=== PATIENT | female | born 1940 | race Caucasian/White ===

== ENCOUNTER → 2016-07-28 | Outpatient (CLI) | payer OTHER, MEDICARE ==
[~2016-07-28] MED LIST: ASPEC81 PO; CALCTAB5 PO; METO50TA16 PO; MULT-506 PO; OMEP40CA PO; POTA10CA28 PO; VITA400C15 PO; [UNRECOGNIZED DRUG - CODE] PO
[2016-07-28 12:34] LABS: BASO % 0.5 %; BASO ABS # 0.03 K/uL (0-0.2); COMPLETE YES; EOS % 7.9 %; IG% 0.3 %; LYMPH % 48.9 %; LYMPH ABS # 2.99 K/uL (1.2-3.4); MEAN CELL VOLUME 93.5 fL (80-100); MEAN CORPUSCULAR HGB CONC 34.3 g/dl (32-36); MEAN PLATELET VOLUME 11.6 fL (7.4-10.4); MONO % 8.2 %; NEUT % 34.2 %; PLATELET COUNT 149 K/uL (130-400); RED BLOOD COUNT 4.28 M/uL (4.2-5.4); WHITE BLOOD COUNT 6.11 K/uL (4.8-10.8)
[2016-07-28 12:51] LABS: ALT/SGPT 28 U/L (12-78); AST/SGOT 34 U/L (15-37); BLOOD UREA NITROGEN 11 mg/dl (7-18); CALCIUM 8.9 mg/dl (8.5-10.1); CARBON DIOXIDE 25 mmol/L (21-32); CHLORIDE 107 mmol/L (98-107); GLUCOSE 131 mg/dl (70-99); POTASSIUM 4.2 mmol/L (3.5-5.1); SODIUM 140 mmol/L (136-145)
[2016-07-28 12:58] LABS: ALB/GLOB RATIO 0.8 (0.9-2); ALKALINE PHOSPHATASE 90 U/L (45-117); CHOLESTEROL 113 mg/dl (0-200); CHOLESTEROL/HDL RATIO 3.8; HDL CHOLESTEROL 30 mg/dl; TRIGLYCERIDES 202 mg/dl (0-150); VERY LOW DENSITY LIPOPROT CALC 40 mg/dl
[2016-07-28 13:12] LABS: ESTIMATED AVERAGE GLUCOSE 143 mg/dl; HA1C FLAG Normal (Normal)
== END | disposition home or self-care (01) ==
LOC: C.LABSPEC 12:13
PROVIDERS: ATTEND Internal Medicine
DX: I10 Essential (primary) hypertension (principal); E78.5 Hyperlipidemia, unspecified; R73.9 Hyperglycemia, unspecified

== ENCOUNTER → 2016-07-28 | Outpatient (CLI) | payer OTHER, MEDICARE | END | disposition home or self-care (01) | LOC: C.LABSPEC 12:40 | PROVIDERS: ATTEND Internal Medicine | DX: Z12.11 Encounter for screening for malignant neoplasm of colon (principal) ==

== ENCOUNTER → 2016-11-24 | Outpatient (CLI) | payer OTHER, MEDICARE ==
--- NOTE | 2016-11-24 16:09 | MAMMOGRAPHY REPORT ---
BILATERAL DIGITAL SCREENING MAMMOGRAM TOMOSYNTHESIS WITH CAD: 11/24/2016 CLINICAL HISTORY: Asymptomatic. Personal history of breast cancer. TECHNIQUE: Breast tomosynthesis in addition to standard 2D mammography was performed. Current study was also evaluated with a Computer Aided Detection (CAD) system. COMPARISON: Comparison is made to exams dated: 11/24/2015 mammogram, 11/20/2014 mammogram, 11/27/2013 ma mmogram, 11/19/2013 mammogram, 05/18/2013 mammogram, and 02/15/2013 mammogram - [facility] enter. BREAST COMPOSITION: There are scattered areas of fibroglandular density in both breasts. FINDINGS: No suspicious masses, calcifications, or areas of architectural distortion are noted in ei ther breast. There has been no significant interval change compared to prior exams. Postoperative ch anges are again noted in the left upper outer quadrant from prior lumpectomy, including stable densit y and architectural distortion at the surgical bed. Benign coarse dystrophic calcifications and a bi opsy marker clip are again noted at the lumpectomy bed. A linear scar marker denotes a scar on the l eft upper outer breast. Other scattered bilateral benign-appearing calcifications are again noted. IMPRESSION: ACR BI-RADS CATEGORY 2: BENIGN There is no mammographic evidence of malignancy. A 1 year screening mammogram is recommended. The pa tient will receive written notification of the results. Approximately 10% of breast cancers are not detected with mammography. A negative mammographic report should not delay biopsy if a clinically suggestive mass is present. Sofia Salcedo M.D. /:11/24/2016 13:23:52 Master Lay Out Specialist: Nelda DICKENS(Preeti)(Yakelin)(BD), [facility] letter sent: Normal 1/2 BI-RADS Code: ACR BI-RADS Category 2: Benign
== END | disposition home or self-care (01) ==
LOC: C.MAMM 10:45
PROVIDERS: ATTEND Internal Medicine
DX: Z12.31 Encounter for screening mammogram for malignant neoplasm of breast (principal); Z85.3 Personal history of malignant neoplasm of breast

== ENCOUNTER → 2017-08-10 | Outpatient (CLI) | payer OTHER, MEDICARE ==
--- NOTE | 2017-08-10 17:25 | DIAGNOSTIC IMAGING REPORT ---
TWO VIEW CHEST CLINICAL HISTORY: Cough. FINDINGS: PA and lateral chest radiographs are obtained. No prior studies are available for comparison at the time of dictation. The cardiomediastinal silhouette is unremarkable. The lungs and pleural spaces are clear. There is no pneumothorax. The skeletal structures are osteopenic. The bony thorax appears intact. IMPRESSION: No active disease in the chest. Electronically signed by: Ozzy Rodríguez M.D. 08/10/2017 5:24 PM Dictated Date/Time: 08/10/2017 5:24 PM
== END | disposition home or self-care (01) ==
LOC: C.RAD 16:52
PROVIDERS: ATTEND Internal Medicine
DX: R05 Cough (principal)

== ENCOUNTER 2025-05-16 11:57 | Inpatient (IN) ==
--- NOTE | 2025-05-16 12:35 | Emergency Department Note ---
ED Provider Note History of Present Illness Chief Complaint: Weakness Stated Complaint: Head Injury Time Seen by Provider: 05/16/25 12:15 85-year-old female who presents to the emergency department via EMS with her daughter (who also provides further history of presentation) for evaluation of bloody stool, blood in her mouth and unexplained bruising on her forehead. The patient does live alone. The patient reports that she was out with friends yesterday for lunch. She reports that a retired nurse sat across from her, and did not make any mention of any bruising on her forehead. She went from there to the [facility] coagulation clinic and had her INR drawn. The patient was called this morning, telling her that her INR was 9. They recommend that she stop her Coumadin, and recommended that she come to the emergency department for further evaluation. When asking the patient how she feels, she reports that she is "very tired". She reports that she has been this way for several days. She reports that her stomach keeps grumbling. Her daughter reports that she did notice some bright red blood in her stool/toilet this morning. The patient denies any known trauma to the head, or fall. She currently denies any chest pain, shortness of breath, nausea, blurry vision, back pain or other concerning symptoms. Home Medications Medication Instructions Recorded Confirmed Type acetaminophen 500 mg tablet 500 mg PO Q4H PRN Pain 05/16/25 05/16/25 History (Tylenol Extra Strength) calcium carbonate 500 mg PO BID 05/16/25 05/16/25 History cholecalciferol (vitamin D3) 50 50 mcg PO BID 05/16/25 05/16/25 History mcg (2,000 unit) capsule (Vitamin D3) colestipol 1 gram tablet 1 g PO BID 05/16/25 05/16/25 History diltiazem HCl 120 mg 120 mg PO QAM 05/16/25 05/16/25 History capsule,extended release 24 hr donepezil 10 mg tablet 10 mg PO QAM 05/16/25 05/16/25 History dorzolamide 22.3 mg-timolol 6.8 1 drp OPB QAM 05/16/25 05/16/25 History mg/mL eye drops estradiol 0.01% (0.1 mg/gram) 0.5 g vaginal DIRECTED 05/16/25 05/16/25 History vaginal cream iron 18 mg tablet 18 mg PO DAILY 05/16/25 05/16/25 History metoprolol tartrate 50 mg tablet 75 mg PO BID 05/16/25 05/16/25 History ozsbrgbv-mgmy-anpm 8 mg-folic 400 1 tab PO DAILY 05/16/25 05/16/25 History mcg-K 50 mcg-lutein 300 mcg tablet (Multivitamin Women 50 Plus) silver sulfadiazine 1 % topical 1 applic topical TID 05/16/25 05/16/25 History cream warfarin 2 mg tablet 2 mg PO DIRECTED 05/16/25 05/16/25 History Allergies Allergy/AdvReac Type Severity Reaction Status Date / Time peach Allergy Intermediate HIVES,NAUSEA Verified 05/16/25 16:10 AND VOMITING PRUNUS PERSICA Allergy Intermediate RASH/NAUSEA Uncoded 05/16/25 16:10 /VOMITING Past Med/Surg History Problem List (Updated 05/16/25 @ 16:43 by Alan Leblanc) GI (gastrointestinal hemorrhage) (Acute) Ecchymosis (Acute) Bleeding from mouth (Acute) Supratherapeutic INR (Acute) Medical History Warfarin anticoagulation Atrial fibrillation Arthritis Surgical History H/O total hysterectomy with bilateral salpingo-oophorectomy (BSO) Family History Sister Heart disease of [place] Father Heart disease Mother , of old age Breast cancer Social History Smoking Status: Former smoker Hx Alcohol Use: No Hx Substance Use: No Preferred Language: Marshallese Medical Office Receptionist Required: No marital status: Current Living Situation: Spouse Current Living Situation Comment: lives in home alone current occupational status: retired Feels Safe at Home: Yes Assistive Devices: None Physical Exam Vital Signs Vital Signs - 24 hr 05/16/25 11:53 05/16/25 12:01 05/16/25 12:01 Temperature Temperature Source Pulse Rate 61 60 Pulse Rate [Apical] 58 L Pulse Rhythm Pulse Rhythm [Apical] Regular Pulse Strength [Apical] Normal Respiratory Rate 16 16 Respiratory Effort / Characteristics Non-Labored Spontaneous Respiratory Depth Normal Respiratory Pattern Regular Blood Pressure 121/67 Blood Pressure [Right Arm] 121/60 Blood Pressure Mean 85 Blood Pressure Mean [Right Arm] 80 Pulse Oximetry 98 96 Oxygen Delivery Method Room Air Room Air Sepsis Recent Fever Within 48 Hours No Sepsis New/Unexplained Change in Mental Status No Sepsis Action Taken by Nursing No Action Required 05/16/25 12:09 05/16/25 12:09 05/16/25 12:28 Temperature 36.7 C Temperature Source Oral Pulse Rate 58 L Pulse Rate [Apical] 60 Pulse Rhythm Regular Pulse Rhythm [Apical] Regular Pulse Strength [Apical] Normal Respiratory Rate 16 15 Respiratory Effort / Characteristics Respiratory Depth Respiratory Pattern Blood Pressure Blood Pressure [Right Arm] 121/61 Blood Pressure Mean Blood Pressure Mean [Right Arm] 81 Pulse Oximetry 96 99 99 Oxygen Delivery Method Room Air Room Air Room Air Sepsis Recent Fever Within 48 Hours Sepsis New/Unexplained Change in Mental Status Sepsis Action Taken by Nursing 05/16/25 13:53 05/16/25 14:09 05/16/25 16:00 Temperature Temperature Source Pulse Rate Pulse Rate [Apical] 61 56 L 60 Pulse Rhythm Pulse Rhythm [Apical] Regular Regular Pulse Strength [Apical] Normal Normal Respiratory Rate 16 18 16 Respiratory Effort / Characteristics Non-Labored Spontaneous Respiratory Depth Normal Respiratory Pattern Blood Pressure Blood Pressure [Right Arm] 96/48 L 126/71 Blood Pressure Mean Blood Pressure Mean [Right Arm] 64 89 Pulse Oximetry 98 96 98 Oxygen Delivery Method Room Air Room Air Room Air Sepsis Recent Fever Within 48 Hours Sepsis New/Unexplained Change in Mental Status Sepsis Action Taken by Nursing CONSTITUTIONAL: Healthy and well nourished. Alert and oriented X 3. GCS 15. Patient does not appear in any acute distress. HEENT: Examination shows ecchymosis of the central and left forehead region. No laceration, hematoma, abrasion or other concerning traumatic findings. Pupils equal, round and reactive. Patient does have blood crusted on her lips. Oropharyngeal exam does not show any obvious identified bleed, but does have some blood around the gingiva and teeth. No postnasal bleed appreciated. NECK: Full active range of motion without discomfort. No JVD or carotid bruits on auscultation. LYMPHATICS: No cervical chain adenopathy. RESPIRATORY: Clear to auscultation bilaterally with no wheezing, crackles, rhonchi or stridor. CARDIOVASCULAR: Regular rate and rhythm with no murmurs, rubs or gallops. GASTROINTESTINAL: Bowel sounds present in all quadrants. Patient has no focal abdominal tenderness to palpation. MUSCULOSKELETAL: Full range of motion of all joints without discomfort. INTEGUMENTARY: No rash or other significant dermatologic conditions noted. HEMATOLOGIC: No ecchymosis or petechiae. PSYCHIATRIC: Positive affect. Patient engages in meaningful conversation. NEUROLOGIC: Cranial nerves II-XII grossly intact. No focal neurologic deficits noted. Course Course Patient history and physical exam were performed. Nursing notes are reviewed. Vital signs are reviewed from triage, showing a mild bradycardia, which is not new for the patient. The patient was not hypotensive, febrile or hypoxic. IV access was established, and labs were ordered and drawn. An ECG was performed, showing a mild sinus bradycardia 55 bpm. No A-fib is noted. The patient was placed on engine monitor while in the emergency department. Review of labs shows a mild leukocytosis with normal platelet count, and mildly elevated absolute neutrophil count. INR is greater than 9.5 with a PTT of 86. CMP shows a hyperglycemia, which appears to be baseline for the patient. Patient is mildly hypomagnesemic, doubtful significance. Troponin and TSH were normal. Stool Hemoccult was positive for hematuria. There was a delay with CT imaging as CT was very busy with other critical patients. CT studies were eventually performed and did not show any concerning findings. Findings were discussed with the patient, as well as Dr. Earl, ED attending physician, who recommended administering IV vitamin K. I did explain to the patient that given her active bleeding, she would be best served with admission for further observation. The patient was in agreement with this plan. I did reach out to the [facility] hospitalist service, who requested additional administration of Kcentra, which was ordered. Please see hospitalist dictations for further treatment and final disposition. Administered Medications Colestipol HCl (Colestipol Hcl 1 Gm Tab) 1 gm PO BID DAISY Stop: 06/15/25 20:59 Last Admin: 05/16/25 21:49 Dose: 1 gm Documented By: KRISTEN Pantoprazole Sodium (Protonix) 40 mg in 10 mls @ 5 mls/min IV BID DAISY Stop: 06/15/25 20:59 Last Admin: 05/16/25 20:42 Dose: 5 mls/min Documented By: KRISTEN Metoprolol Tartrate (Metoprolol Tartrate 25 Mg Tab) 75 mg PO BID DAISY Stop: 06/15/25 20:59 Last Admin: 05/16/25 20:41 Dose: 75 mg Documented By: KRISTEN Silver Sulfadiazine (Silver Sulfadiazine 1% Cr 50 Gm Jar/Tube) 1 appln TOP TID DAISY Stop: 06/15/25 20:59 Last Admin: 05/16/25 20:42 Dose: Not Given Documented By: KRISTEN Discontinued Medications Phytonadione 10 mg/ Dextrose 51 mls @ 102 mls/hr IV ONE ONE Stop: 05/16/25 14:22 Last Infusion: 05/16/25 15:20 Dose: Infused Documented By: kindra Admin: 05/16/25 14:22 Dose: 102 mls/hr Documented By: kindra Prothrombin Complex Concent ( (Human) 3,000 units/ Syringe) 120 mls @ 10 mls/min IV NOW STA; Protocol Stop: 05/16/25 16:05 Last Admin: 05/16/25 16:40 Dose: 10 mls/min Documented By: kindra Prothrombin Complex Concent ( (Human) 3,000 units/ Syringe) 120 mls @ 10 mls/min IV NOW STA; Protocol Stop: 05/16/25 16:21 Last Admin: 05/16/25 16:40 Dose: 10 mls/min Documented By: kindra Admin: 05/16/25 16:40 Dose: 10 mls/min Documented By: kindra Magnesium Sulfate/Dextrose (Magnesium Sulfate / D5w) 1 gm in 100 mls @ 50 mls/hr IV Q2H DAISY Stop: 05/16/25 21:29 Last Infusion: 05/16/25 21:52 Dose: Infused Documented By: Admin: 05/16/25 19:36 Dose: 50 mls/hr Documented By: Infusion: 05/16/25 19:34 Dose: Infused Documented By: Admin: 05/16/25 17:34 Dose: 50 mls/hr Documented By: kindra Lactated Ringer's (Lr) 1,000 mls @ 80 mls/hr IV .[id number] [facility] [place] Stop: 05/17/25 07:00 Last Admin: 05/16/25 19:35 Dose: 80 mls/hr Documented By: KRISTEN Miscellaneous (Stat Iv/Im) 1 each N/A NOW STA Stop: 05/16/25 16:05 Last Admin: 05/16/25 16:41 Dose: 1 each Documented By: kindra Medical Decision Making Medical Records Attestation: I reviewed the patient's medical records. Home Medications was personally reviewed by me Laboratory Data Attestation: I reviewed the patient's lab results. 05/17/25 06:00 05/17/25 06:00 Lab Results 05/16/25 05/16/25 05/16/25 Range/Units 12:01 14:08 14:25 WBC 11.20 H (4.8-10.8) K/ul RBC 3.18 L (4.20-5.40) M/uL Hgb 10.4 L (12.0-16.0) g/dL Hct 31.1 L (37.0-47.0) % MCV 97.8 (80.0-100.0) fL MCH 32.7 (25.0-34.0) pg MCHC 33.4 (32.0-36.0) g/dL RDW Std Deviation 46.2 (36.4-46.3) fL RDW Coeff of Janee 12.9 (11.5-14.5) % Plt Count 167 (130-400) K/uL MPV 11.6 (9.4-12.4) fL Immature Gran % (Auto) 0.4 % Neut % (Auto) 81.3 % Lymph % (Auto) 10.6 % Wharton % (Auto) 7.1 % Eos % (Auto) 0.2 % Baso % (Auto) 0.4 % Neut # (Auto) 9.10 H (1.40-6.50) K/uL Lymph # (Auto) 1.19 L (1.20-3.40) K/uL Wharton # (Auto) 0.80 H (0.11-0.59) K/uL Eos # (Auto) 0.02 (0.00-0.50) K/uL Baso # (Auto) 0.04 (0.00-0.20) K/uL Immature Gran # (Auto) 0.05 (0.01-0.20) K/uL PT > 90.0 H (9.0-12.0) Seconds INR > 9.5 H* (0.9-1.1) APTT 86 H* (21-31) Seconds PTT Ratio 3.2 Sodium 141 (136-145) mmol/L Potassium 4.4 (3.5-5.1) mmol/L Chloride 111 H (98-107) mmol/L Carbon Dioxide 25 (21-32) mmol/L Anion Gap 5 (3-11) BUN 22 (6-23) mg/dl Creatinine 1.09 (0.6-1.2) mg/dl Est Cr Clr Drug Dosing 28.0 ml/min eGFR 49.48 BUN/Creatinine Ratio 20.2 H (10-20) Glucose 163 H (70-99(Fasting)) mg/dl Lactate 1.6 (0.4-2.0) mmol/L Calcium 8.9 (8.6-10.3) mg/dl Magnesium 1.6 L (1.7-2.4) mg/dl Total Bilirubin 1.0 (0.2-1.0) mg/dl AST 17 (13-39) U/L ALT 7 (7-52) U/L Alkaline Phosphatase 46 (34-104) U/L Total Creatine Kinase 78 (26-192) U/L Troponin I High Sens 3.2 (0-14) pg/ml Total Protein 6.6 (6.0-8.3) gm/dl Albumin 3.5 (3.4-5.0) gm/dl Globulin 3.1 (2.5-4.0) gm/dl Albumin/Globulin Ratio 1.1 (0.9-2) TSH 2.052 (0.300-4.500) uIu/ml POC Stool Occult Blood Positive A (Negative) Imaging Data Attestation: I personally reviewed and interpreted this imaging study as follows: My Impression: My interpretation of an abdomen x-ray series with the PA chest view does not show evidence for any obstructive findings, pneumothorax, pneumonia or cardiomegaly. My interpretation of a noncontrast CT scan of the head does not show evidence for intracranial bleed, midline shift or mass effect. Radiologist reports were also reviewed with concurrence. Radiologist's Impression: Chest/Abdomen X-ray 05/16/25 12:28 XR abdomen 2V w PA chest HISTORY: 85 years-old Female Weakness, h/o A-fib, GI bleed CT chest abdominal pain with weakness COMPARISON: Chest radiograph 09/05/2023 TECHNIQUE: AP view of the chest with left lateral acute and supine views of the abdomen FINDINGS: Cardiomediastinal and hilar silhouettes are within normal limits. Skin folds project over the chest. No definite pneumothorax, pleural effusion or airspace consolidation. Degenerative changes of the shoulders and spine with sigmoidal thoracolumbar scoliosis. Nonobstructive bowel gas pattern. No definite pneumatosis or pneumoperitoneum. No definite urolith is seen. IMPRESSION: 1. No acute process of the chest. 2. Nonobstructive bowel gas pattern. ACT 112: Negative or not required by law. The above report was generated using voice recognition software. It may contain grammatical, syntax or spelling errors. Electronically signed by: Nino Urias M.D. 05/16/2025 3:[address] 05/16/25 13:30 CT SCAN OF THE BRAIN WITHOUT IV CONTRAST CLINICAL HISTORY: Weakness. Elevated INR. COMPARISON STUDY: None. TECHNIQUE: Unenhanced axial CT scan of the brain was performed from the vertex to the skull base. A dose lowering technique was utilized adhering to the principles of ALARA. CT DOSE: 703.85 mGy.cm FINDINGS: Brain parenchyma: No acute intracranial hemorrhage, midline shift or mass effect is present. Acosta-white matter differentiation is preserved. There are no extra- axial fluid collections. There are no findings to suggest acute dural sinus thrombosis or acute territorial infarct. Ventricles, sulci, cisterns: There is no hydrocephalus. The basal cisterns are patent. Calvarium: Unremarkable. Sinuses and mastoids: The visualized paranasal sinuses are clear. The mastoid air cells are well pneumatized. Orbits: The bony orbits are grossly intact. IMPRESSION: No acute intracranial findings. ACT 112: Negative or not required by law. Electronically signed by: Van Lynn M.D. 05/16/2025 3:34 PM ECG Data Attestation: I personally reviewed and interpreted this ECG as follows: Indication: + weakness Rate (beats per minute): 55 Rhythm: + sinus bradycardia ECG Intervals/blocks: + Normal QRS ECG Kite: + Normal ECG ST segments: + Normal ST segments Comparison ECG Date: from ) Change: no significant change MDM Narrative Cardiac monitoring: An order was placed for continuous cardiac monitoring. The monitor shows a rate of 55 bpm with a sinus bradycardic rhythm. electronic device monitor history was reviewed throughout the evaluation, and no dysrhythmias were noted. See ED Course section for further details of today's visit. The patient was initially marked as a Injury Alert upon presentation given her physical examination findings of forehead ecchymosis and outpatient elevated INR level/Coumadin use. The patient reports from the time that she actually went out with friends yesterday afternoon, until she actually had her blood drawn for INR levels, she denies any trauma to the head. Given that the patient also has gingival bleeding and rectal bleeding as well, I do suspect that the ecchymosis is likely secondary to his supratherapeutic INR level. The patient is of sound mind engages in appropriate conversation, therefore I do not feel that an injury alert was warranted. CT imaging of the head was nonetheless ordered, and did not show any concerning findings. Patient also denies any focal areas of discomfort, therefore I do not feel that further trauma scans are needed. Patient does have a supratherapeutic INR of greater than 9.5, as well as a mild anemia with gingival hemorrhage and mild rectal bleed. The patient was administered IV vitamin K, however discussed the case further with the hospitalist service, who does agree with admission, she will also be administered Kcentra for definitive warfarin reversal. Patient does not have any other concerning findings, such as abnormal thyroid state or other major electrolyte abnormalities. The patient does agree to admission for further observation, with the [facility] hospitalist service agreement with admission as well. The case was also discussed with Dr. Earl, ED attending physician, who agrees with workup and admission planning. Attending Attestation: I Rakesh Earl MD I have reviewed the advanced practitioner's documentation and agree with the plan of care. Vitamin K ordered as well as later Kcentra discussed with the hospitalist. No ICH on imaging per radiology report. I accept the responsibility for the associated risk of managing the patient. I performed a substantive portion of the visit including involvement in all aspects of medical decision making. Impression Supratherapeutic INR, Bleeding from mouth, Ecchymosis, GI (gastrointestinal hemorrhage) Discharge Plan Visit Data Chief Complaint: Weakness Stated Complaint: Head Injury ED Provider: Rakesh Earl ED Midlevel Provider: Alan Leblanc Discharge Problem: Supratherapeutic INR, Bleeding from mouth, Ecchymosis, GI (gastrointestinal hemorrhage) Patient Disposition: Admitted As Inpatient Condition: Fair Discharge Instructions Interventions: ED Discharge Assessment Last Done: 05/16/25 18:13 ED DC CONDITION Conditon at Discharge Condition at Discharge: Fair Discharge Problem: GI (gastrointestinal hemorrhage) Qualifiers: GI bleed type/associated pathology: unspecified gastrointestinal hemorrhage type Qualified Code(s): K92.2 - Gastrointestinal hemorrhage, unspecified
[2025-05-16 13:04] LABS: Hematocrit (blood only) 31.1 % (37.0-47.0); Hemoglobin 10.4 g/dL (12.0-16.0); Immature Granulocytes # (auto) 0.05 K/uL (0.01-0.20); Immature Granulocytes % (auto) 0.4 %; Mean Corpuscular Hemoglobin 32.7 pg (25.0-34.0); Mean Corpuscular Volume 97.8 fL (80.0-100.0); Platelet Count 167 K/uL (130-400); RDW Standard Deviation 46.2 fL (36.4-46.3); Red Blood Count 3.18 M/uL (4.20-5.40); White Blood Count 11.20 K/ul (4.8-10.8)
[2025-05-16 13:23] LABS: Alanine Aminotransferase 7.0 U/L (7-52); Albumin Globulin Ratio 1.1 (0.9-2); Albumin Level 3.5 gm/dl (3.4-5.0); Alkaline Phosphatase 46.0 U/L (34-104); Anion Gap 5.0 (3-11); Bilirubin,Total 1.0 mg/dl (0.2-1.0); Blood Urea Nitrogen 22.0 mg/dl (6-23); Calcium 8.9 mg/dl (8.6-10.3); Carbon Dioxide 25.0 mmol/L (21-32); Chloride 111.0 mmol/L (98-107); Creatine Kinase 78.0 U/L (26-192); Creatinine Clr Calc Pharmacy 28.0 ml/min; Globulin 3.1 gm/dl (2.5-4.0); Glucose 163.0 mg/dl (70-99(Fasting)); Magnesium 1.6 mg/dl (1.7-2.4); Potassium 4.4 mmol/L (3.5-5.1); Sodium 141.0 mmol/L (136-145); Total Protein 6.6 gm/dl (6.0-8.3)
[2025-05-16 13:35] LABS: Thyroid Stimulating Hormone 2.052 uIu/ml (0.300-4.500)
[2025-05-16 13:43] LABS: Prothrombin Time > 90.0 Seconds (9.0-12.0)
[2025-05-16 13:54] LABS: INR > 9.5 (0.9-1.1); Partial Thromboplastin Time 86 Seconds (21-31)
[2025-05-16] MEDS: PHYTONADIONE 10 MG in DEXTROSE 5% 50 ML IV ONE (14:22)
--- NOTE | 2025-05-16 15:12 | XRay Report ---
XR abdomen 2V w PA chest HISTORY: 85 years-old Female Weakness, h/o A-fib, GI bleed CT chest abdominal pain with weakness COMPARISON: Chest radiograph 09/05/2023 TECHNIQUE: AP view of the chest with left lateral acute and supine views of the abdomen FINDINGS: Cardiomediastinal and hilar silhouettes are within normal limits. Skin folds project over the chest. No definite pneumothorax, pleural effusion or airspace consolidation. Degenerative changes of the ashish ulders and spine with sigmoidal thoracolumbar scoliosis. Nonobstructive bowel gas pattern. No definit e pneumatosis or pneumoperitoneum. No definite urolith is seen. IMPRESSION: 1. No acute process of the chest. 2. Nonobstructive bowel gas pattern. ACT 112: Negative or not required by law. The above report was generated using voice recognition software. It may contain grammatical, syntax o r spelling errors. Electronically signed by: Nino Urias M.D. 05/16/2025 3:10 PM
--- NOTE | 2025-05-16 15:36 | CT Scan Report ---
CT SCAN OF THE BRAIN WITHOUT IV CONTRAST CLINICAL HISTORY: Weakness. Elevated INR. COMPARISON STUDY: None. TECHNIQUE: Unenhanced axial CT scan of the brain was performed from the vertex to the skull base. A dose lowering technique was utilized adhering to the principles of ALARA. CT DOSE: 703.85 mGy.cm FINDINGS: Brain parenchyma: No acute intracranial hemorrhage, midline shift or mass effect is present. Acosta-whi te matter differentiation is preserved. There are no extra-axial fluid collections. There are no find ings to suggest acute dural sinus thrombosis or acute territorial infarct. Ventricles, sulci, cisterns: There is no hydrocephalus. The basal cisterns are patent. Calvarium: Unremarkable. Sinuses and mastoids: The visualized paranasal sinuses are clear. The mastoid air cells are well pneu matized. Orbits: The bony orbits are grossly intact. IMPRESSION: No acute intracranial findings. ACT 112: Negative or not required by law. Electronically signed by: Van Lynn M.D. 05/16/2025 3:34 PM
--- NOTE | 2025-05-16 16:35 | History & Physical Report ---
Date of Service May 16, 2025 Assessment & Plan (1) GI (gastrointestinal hemorrhage): (2) Ecchymosis: (3) Supratherapeutic INR: (4) Warfarin anticoagulation: (5) Atrial fibrillation: Plan 85 yo female with pmhx of chronic atrial fibrillation, CKD stage 3b, osteoporosis, Alzheimers disease, hx of left breast cancer, GERD, hx of DVT, HTN who presents for weakness, fatigue, blood per rectum, bruising on head 2/2 possible upper and lower GI tract hemorrhage in setting of supratherapeutic INR. #Acute Blood Loss Anemia #R/o Upper and Lower GI Bleed #Chronic Diarrhea #Hx of C. diff #Supratherapeutic INR -has had borderline BP, dizziness, fatigue since this morning -rectal exam with bright red blood, occult blood positive as well -has hx of recent c. diff infections refractory to treatment -has had recent dosing adjustments and memory issues so may have taken more warfarin than needed -differential includes diarrhea, dosing error, recent abx use Plan: -check stool biofire, c.diff -give Kcentra and vitamin K, recheck INR in AM -start protonix 40 IV bid given melena -recheck CBC tonight -GI consult, appreciate recs, NPO after midnight for consideration of procedure -hold warfarin, iron, carvedilol, continue metoprolol given GI bleed but with afib -start maintenance fluids #Leukocytosis -does have diarrhea -could also be reactive to bleed Plan: -check biofire stool and biofire -check urinalysis #CKD Stage 3b -trend BMP #Alzheimers -continue donepezil #Osteoporosis -f/u outpatient #GERD -on protonix #Hx of DVT #Chronic Atrial Fibrillation -hold blood thinners for now I spent a total of 80 minutes in direct patient care, including [id number] time with the patient and/or family, reviewing medical records, ordering and reviewing diagnostic tests, and coordinating care with other healthcare providers. This time includes: history taking, physical examination, medical decision making, counseling, ECG interpretation, imaging interpretation, lab interpretation, orders, and education, excluding time spent in the performance of separately billed services. History of Present Illness Chief Complaint: -fatigue, weakness, blood per rectum, bruising Primary Care Provider: Yeni Burgos MD 85 yo female with pmhx of chronic atrial fibrillation, CKD stage 3b, osteoporosis, Alzheimers disease, hx of left breast cancer, GERD, hx of DVT, HTN who presents for weakness, fatigue, blood per rectum, bruising on head. No admissions at [facility]. In the ED, given vitamin K for very high INR, tried to admit to medicine, medicine requested kcentra given 4 point Hgb drop and active hemorrhage, Kcentra ordered by ED, admitted to medicine for further workup. Patient seen and examined at bedside. Daughter and sister present as well. Patient is a poor historian. Yesterday was noted to have a bruise all over her head, denies true following, denies being hit. Per family has been having bright red blood per rectum for the past few days. Has had black stool for the past few weeks. Has significant issues with diarrhea. This morning felt weak, lightheaded, fatigued and came to the ED. Denies nausea vomiting chest pain or other associated symptoms. No alcohol use, no tobacco use, no drug use, DNR DNI discussed with family Allergies Allergy/AdvReac Type Severity Reaction Status Date / Time peach Allergy Intermediate HIVES,NAUSEA Verified 05/16/25 16:10 AND VOMITING PRUNUS PERSICA Allergy Intermediate RASH/NAUSEA Uncoded 05/16/25 16:10 /VOMITING Home Medications Medication Instructions Recorded Confirmed Type acetaminophen 500 mg tablet 500 mg PO Q4H PRN Pain 05/16/25 05/16/25 History (Tylenol Extra Strength) calcium carbonate 500 mg PO BID 05/16/25 05/16/25 History cholecalciferol (vitamin D3) 50 50 mcg PO BID 05/16/25 05/16/25 History mcg (2,000 unit) capsule (Vitamin D3) colestipol 1 gram tablet 1 g PO BID 05/16/25 05/16/25 History diltiazem HCl 120 mg 120 mg PO QAM 05/16/25 05/16/25 History capsule,extended release 24 hr donepezil 10 mg tablet 10 mg PO QAM 05/16/25 05/16/25 History dorzolamide 22.3 mg-timolol 6.8 1 drp OPB QAM 05/16/25 05/16/25 History mg/mL eye drops estradiol 0.01% (0.1 mg/gram) 0.5 g vaginal DIRECTED 05/16/25 05/16/25 History vaginal cream iron 18 mg tablet 18 mg PO DAILY 05/16/25 05/16/25 History metoprolol tartrate 50 mg tablet 75 mg PO BID 05/16/25 05/16/25 History opjhvsux-mvbk-rsif 8 mg-folic 400 1 tab PO DAILY 05/16/25 05/16/25 History mcg-K 50 mcg-lutein 300 mcg tablet (Multivitamin Women 50 Plus) silver sulfadiazine 1 % topical 1 applic topical TID 05/16/25 05/16/25 History cream warfarin 2 mg tablet 2 mg PO DIRECTED 05/16/25 05/16/25 History Past Med/Surg History Problem List (Updated 05/16/25 @ 16:43 by Alan Leblanc) GI (gastrointestinal hemorrhage) (Acute) Ecchymosis (Acute) Bleeding from mouth (Acute) Supratherapeutic INR (Acute) Medical History Warfarin anticoagulation Atrial fibrillation Arthritis Surgical History H/O total hysterectomy with bilateral salpingo-oophorectomy (BSO) Family History Sister Heart disease of [place] Father Heart disease Mother , of old age Breast cancer Social History Smoking Status: Former smoker Hx Alcohol Use: No Hx Substance Use: No Preferred Language: Azerbaijani Wireless Store Manager Required: No marital status: Current Living Situation: Spouse Current Living Situation Comment: lives in home alone current occupational status: retired Feels Safe at Home: Yes Assistive Devices: None Review of Systems Review of Systems: -negative unless listed above Physical Exam Physical Exam: Gen: A&O 3 NAD HEENT: noted ecchymoses on scalp worst on left side Neck: Supple, full range of motion, no observable masses, No meningeal sign. Lungs: No Respiratory distress. CV: irregurally irregular, no edema. Abdomen: rectal exam performed with POA permission and with night shift manager in room, trace bright red blood noted, tenderness to palpation in suprapubic region and RLQ MSK: scattered ecchymoses Skin: No rashes, petechiae, lesions. Normal color per patient. Neuro: Normal Gait, Grossly intact. Psych: Appropriate for situation. Results & Data Results & Data Vital Signs (Past 12 Hours) Vital Signs Temp Pulse Pulse Resp BP BP Pulse Ox 05/16/25 14:09 56 L 18 96/48 L 96 05/16/25 13:53 61 16 98 05/16/25 12:28 58 L 15 99 05/16/25 12:09 36.7 C 60 16 121/61 99 05/16/25 12:09 96 05/16/25 12:01 60 05/16/25 12:01 61 16 121/67 96 05/16/25 11:53 58 L 16 121/60 98 O2 Del Method 05/16/25 14:09 Room Air 05/16/25 13:53 Room Air 05/16/25 12:28 Room Air 05/16/25 12:09 Room Air 05/16/25 12:09 Room Air 05/16/25 12:01 05/16/25 12:01 Room Air 05/16/25 11:53 Room Air Laboratory Results -personally reviewed, 4 point Hgb drop from baseline suggestive of bleeding, BUN slightly greater than baseline, INR over 9.55, Mg of 1.6 replenished Code Status & VTE Plan Code Status -DNRDNI discussed with family VTE Prophylaxis Plan VTE Prophylaxis will be ordered: Yes (1) GI (gastrointestinal hemorrhage) GI bleed type/associated pathology: unspecified gastrointestinal hemorrhage type Qualified Code(s): K92.2 - Gastrointestinal hemorrhage, unspecified
[2025-05-16] MEDS: PROTHROMBIN COMP CONC- KCENTRA 3,000 UNITS in SYRINGE 0 ML IV STA ×2 (16:40)
[2025-05-16] MEDS: STAT IV/IM STA (16:41)
[2025-05-16] MEDS: MAGNESIUM SULFATE / D5W 1 GM/100 ML BAG IV SCH (17:34)
[2025-05-16] MEDS ORDERED: ONDANSETRON INJ 2 MG/ML 2 ML VIAL IV PRN (18:23)
[2025-05-16] MEDS ORDERED: ACETAMINOPHEN 325 MG TAB PO PRN (18:23)
[2025-05-16] MEDS ORDERED: POLYETHYLENE (MIRALAX) 17 GM PACK PO PRN (18:23)
[2025-05-16] MEDS: LACTATED RINGER'S 1,000 ML IV SCH (19:35)
[2025-05-16 19:49] LABS: Chlamydia pneumoniae PCR Not Detected (NotDetected); Coronavirus 229E PCR Not Detected (NotDetected); Coronavirus CoV-2 (COVID19)PCR Not Detected (NotDetected); Coronavirus HKU1 PCR Not Detected (NotDetected); Coronavirus NL63 PCR Not Detected (NotDetected); Coronavirus OC43PCR Not Detected (NotDetected); Human Metapneumovirus PCR Not Detected (NotDetected); Parainfluenza Virus 1 PCR Not Detected (NotDetected); Parainfluenza Virus 2 PCR Not Detected (NotDetected); Parainfluenza Virus 3 PCR Not Detected (NotDetected); Parainfluenza Virus 4 PCR Not Detected (NotDetected); Respiratory Syncytial VirusPCR Not Detected (NotDetected); Rhinovirus/Enterovirus PCR Not Detected (NotDetected)
[2025-05-16] MEDS: METOPROLOL TARTRATE 25 MG TAB PO SCH (20:41)
[2025-05-16] MEDS: SILVER SULFADIAZINE 1% CR 50 GM JAR/TUBE TOP SCH (20:42)
[2025-05-16] MEDS: PANTOprazole 40 MG/10 ML SYR IV SCH (20:42)
[2025-05-16 21:27] LABS: Hematocrit (blood only) 26.3 % (37.0-47.0); Hemoglobin 9.1 g/dL (12.0-16.0); Mean Corpuscular Hemoglobin 33.7 pg (25.0-34.0); Mean Corpuscular Volume 97.4 fL (80.0-100.0); Platelet Count 126 K/uL (130-400); RDW Standard Deviation 44.9 fL (36.4-46.3); Red Blood Count 2.70 M/uL (4.20-5.40); White Blood Count 11.50 K/ul (4.8-10.8)
[2025-05-16] MEDS: COLESTIPOL HCL 1 GM TAB PO SCH (21:49)
--- NOTE | 2025-05-16 22:03 | Electrocardiogram Report ---
Test Reason : Blood Pressure : */* mmHG Vent. Rate : 55 BPM Atrial Rate : 55 BPM P-R Int : 202 ms QRS Dur : 64 ms QT Int : 378 ms P-R-T Axes : 63 17 14 degrees QTcB Int : 361 ms Sinus bradycardia Low voltage QRS Septal infarct (cited on or before 05-Sep-2023) Nonspecific T wave abnormality Abnormal ECG When compared with ECG of 05-Sep-2023 14:50, Questionable change in initial forces of Anteroseptal leads Nonspecific T wave abnormality, worse in Lateral leads Confirmed by Shane Torres ([id number]) on 05/16/2025 10:02:50 PM Referred By: REFERRED SELF Confirmed By: Shane Torres
[2025-05-17 00:56] LABS: Appearance Urine Cloudy (Clear); Bacteria Urine Automated 4+ (None Seen); Glucose Urine UA Negative (Negative); RBC Urine Automated 0-2 /hpf (0-2); WBC Urine Automated 21-50 /hpf (0-5)
[2025-05-17 06:45] LABS: Hematocrit (blood only) 25.1 % (37.0-47.0); Hemoglobin 8.5 g/dL (12.0-16.0); Mean Corpuscular Hemoglobin 32.7 pg (25.0-34.0); Mean Corpuscular Volume 96.5 fL (80.0-100.0); Platelet Count 111 K/uL (130-400); RDW Standard Deviation 44.9 fL (36.4-46.3); Red Blood Count 2.60 M/uL (4.20-5.40); White Blood Count 8.69 K/ul (4.8-10.8)
[2025-05-17 07:08] LABS: Alanine Aminotransferase 6.0 U/L (7-52); Albumin Globulin Ratio 1.2 (0.9-2); Albumin Level 3.0 gm/dl (3.4-5.0); Alkaline Phosphatase 36.0 U/L (34-104); Anion Gap 7.0 (3-11); Bilirubin,Total 1.3 mg/dl (0.2-1.0); Blood Urea Nitrogen 22.0 mg/dl (6-23); Calcium 8.2 mg/dl (8.6-10.3); Carbon Dioxide 23.0 mmol/L (21-32); Chloride 109.0 mmol/L (98-107); Creatinine Clr Calc Pharmacy 28.5 ml/min; Globulin 2.6 gm/dl (2.5-4.0); Glucose 89.0 mg/dl (70-99(Fasting)); Magnesium 1.9 mg/dl (1.7-2.4); Potassium 4.1 mmol/L (3.5-5.1); Sodium 139.0 mmol/L (136-145); Total Protein 5.6 gm/dl (6.0-8.3)
[2025-05-17 07:13] LABS: INR 1.1 (0.9-1.1); Prothrombin Time 11.2 Seconds (9.0-12.0)
[2025-05-17] MEDS: DORZOLAMIDE/TIMOLOL 22.3/6.8MG/ML 10 ML BTL OPB SCH (10:48)
--- NOTE | 2025-05-17 11:06 | Gastrointestinal Consultation ---
Date of Consultation May 17, 2025 Assessment & Plan (1) Supratherapeutic INR: (2) GI (gastrointestinal hemorrhage): Plan Patient admitted with supratherapeutic INR. Bleeding seems to have stopped and was likely related to her high INR. Case discussed with Dr. Ordoñez. - continue to follow hgb/hct. transfuse as needed. - continue with protonix 40mg IV bid. - recommend observation for now. no plans for scopes unless she shows signs of active bleeding. Supervising Physician Co-Signing Physician Notes Gastrointestinal bleeding in the face of a supratherapeutic INR. Patient also has extensive ecchymosis. INR corrected. Hemoglobin last 12 hours 9.1-8.1. Transfuse as needed. Reviewed with patient at this point I do not feel strongly that she needs an endoscopy and colonoscopy unless bleeding persists with a corrected INR. High INR would not cause bleeding typically by itself though may be associated with increased risk of bleeding from hemorrhoids colonic or small bowel AVMs. Reviewed with patient daughter. Both are on board with observing. If signs of continued bleeding however despite normalized her therapeutic INR can reconsider endoscopic evaluation. GI will sign off reconsult as needed History of Present Illness Reason for Consultation: lower GIB, melena Requesting Physician: Alan Vera MD Attending Physician: Yasmin Ahn MD History of Present Illness Patient is a 85 year old female with a past medical history of chronic atrial fibrillation, CKD stage 3b, osteoporosis, Alzheimers disease, history of left breast cancer, GERD, DVT, and HTN who presented to the ED 05/16/25 with complaitns of weakness, fatigue, blood per rectum, and bruising on head after being referred to the ED after coumadin clinic at [facility] found her INR was 9. Patient tells me that she did notice a large amount of bright red blood per rectum yesterday. Chart confirms that daughter also reported this in the ED. no melena per patient. patient tells me she feels much better today. she feels more awake. she denies any further bleeding. she denies nausea, vomiting, abdominal pain. I discussed with nursing, only one bowel movement this morning that was described as red, but it was just a small amount and not bright red blood. Patient is somewhat confused this morning. As such, history was also compiled by discussing with nursing and chart review. 05/17/25 wbc 8.69, hgb 8.5, hct 25.1, plts 111, INR 1.1, Na 139, K 4.1, BUN 22, Cr 1.07, T bili 1.3, AST 15, ALT 6, ALK 36. Allergies Allergy/AdvReac Type Severity Reaction Status Date / Time peach Allergy Intermediate HIVES,NAUSEA Verified 05/16/25 16:10 AND VOMITING PRUNUS PERSICA Allergy Intermediate RASH/NAUSEA Uncoded 05/16/25 16:10 /VOMITING Home Medications Medication Instructions Recorded Confirmed Type acetaminophen 500 mg tablet 500 mg PO Q4H PRN Pain 05/16/25 05/16/25 History (Tylenol Extra Strength) calcium carbonate 500 mg PO BID 05/16/25 05/16/25 History cholecalciferol (vitamin D3) 50 50 mcg PO BID 05/16/25 05/16/25 History mcg (2,000 unit) capsule (Vitamin D3) colestipol 1 gram tablet 1 g PO BID 05/16/25 05/16/25 History diltiazem HCl 120 mg 120 mg PO QAM 05/16/25 05/16/25 History capsule,extended release 24 hr donepezil 10 mg tablet 10 mg PO QAM 05/16/25 05/16/25 History dorzolamide 22.3 mg-timolol 6.8 1 drp OPB QAM 05/16/25 05/16/25 History mg/mL eye drops estradiol 0.01% (0.1 mg/gram) 0.5 g vaginal DIRECTED 05/16/25 05/16/25 History vaginal cream iron 18 mg tablet 18 mg PO DAILY 05/16/25 05/16/25 History metoprolol tartrate 50 mg tablet 75 mg PO BID 05/16/25 05/16/25 History alhxfkak-wxex-rmyu 8 mg-folic 400 1 tab PO DAILY 05/16/25 05/16/25 History mcg-K 50 mcg-lutein 300 mcg tablet (Multivitamin Women 50 Plus) silver sulfadiazine 1 % topical 1 applic topical TID 05/16/25 05/16/25 History cream warfarin 2 mg tablet 2 mg PO DIRECTED 05/16/25 05/16/25 History Patient History Medical History Warfarin anticoagulation Atrial fibrillation Arthritis Surgical History H/O total hysterectomy with bilateral salpingo-oophorectomy (BSO) Family History Sister Heart disease of [place] Father Heart disease Mother , of old age Breast cancer Social History Smoking Status: Former smoker Hx Alcohol Use: No Hx Substance Use: No Preferred Language: Romanian Communication Ability: Effective Board Stacker Required: No marital status: Current Living Situation: Spouse Current Living Situation Comment: lives in home alone current occupational status: retired Feels Safe at Home: Yes Assistive Devices: None Review of Systems Review of Systems: All systems reviewed & are unremarkable except as noted in HPI & below Physical Exam Constitutional: WD/WN, vitals as above Respiratory: normal respiratory effort, lungs clear to auscultation Cardiovascular: Rate/Rhythm: regular rate and regular rhythm Gastrointestinal (Abdomen): normal bowel sounds, soft, nontender, no hepatosplenomegaly Psychiatric: Orientation: alert Affect: euthymic affect Results & Data Vital Signs (Past 12 Hours) Vital Signs Temp Pulse Pulse Pulse Resp BP Pulse Ox 05/17/25 10:26 69 05/17/25 07:00 97.9 F 58 L 18 134/81 96 05/17/25 03:20 98.1 F 63 16 123/57 L 93 05/16/25 23:26 97.9 F 61 17 127/72 97 O2 Del Method 05/17/25 10:26 05/17/25 07:00 Room Air 05/17/25 03:20 Room Air 05/16/25 23:26 Room Air Coding Level of Care Code 07151 INT INP/OBS CARE 2/55MIN Diagnoses Supratherapeutic INR R79.1 GI (gastrointestinal hemorrhage) K92.2 GI bleed type/associated pathology: unspecified gastrointestinal hemorrhage type (2) GI (gastrointestinal hemorrhage) GI bleed type/associated pathology: unspecified gastrointestinal hemorrhage type Qualified Code(s): K92.2 - Gastrointestinal hemorrhage, unspecified
--- NOTE | 2025-05-17 11:08 | Hospitalist Progress Note ---
Date of Service May 17, 2025 Assessment & Plan (1) GI (gastrointestinal hemorrhage): (2) Ecchymosis: (3) Supratherapeutic INR: (4) Warfarin anticoagulation: (5) Atrial fibrillation: Plan 85 year old woman with pmhx of chronic atrial fibrillation, CKD stage 3b, osteoporosis, Alzheimers disease, hx of left breast cancer, GERD, hx of DVT, HTN who presents for weakness, fatigue, blood per rectum, bruising on head 2/2 possible upper and lower GI tract hemorrhage in setting of supratherapeutic INR. #Acute Blood Loss Anemia #Gastrointestinal Bleed #Chronic Diarrhea #Hx of C. diff #Supratherapeutic INR Per Admitting Provider, rectal exam with bright red blood and occult blood positive as well Has hx of recent c. diff infections refractory to treatment Per Admitting Provider, she has had recent dosing adjustments and memory issues so may have taken more warfarin than needed Labs on admission was notable for INR >9.5, Hb 10.4 S/P Kcentra and vitamin K INR down to 1.1 today Hb trending down RN reports only small blood in stool this AM GI eval noted. No scopes planned for now Continue clears and monitor Hb Transfuse prn for Hb <7. 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 #CKD Stage 3b Stable #Alzheimers Continue donepezil #Osteoporosis F/u outpatient #GERD On protonix #Hx of DVT #Chronic Atrial Fibrillation Anticoagulation on hold as above Called daughter and updated her She stated that she and her sister will look into doing pill boxes for her to monitor her med compliance I encouraged them to take over her med administration especially anticoagulant to ensure taking it properly especially with her dementia I spent a total of 55 minutes coordinating, documenting and providing care for this patient excluding time spent in performance of separately billed services Admission and Anticipated Discharge Date Admission Date: May 16, 2025 Subjective Patient seen and examined She is AOx3 Reports she noticed bruise on face the other day Reports chronic blood in stool (pinkish) No other complaints Poor historian Physical Exam Constitutional: + well hydrated; no acute distress Resolving ecchymoses on forehead Eyes: PERRL, conjunctivae normal, anicteric sclerae ENMT: external ear and nose normal, oropharynx normal Respiratory: normal respiratory effort, lungs clear to auscultation Cardiovascular: Rate/Rhythm: regular rate and regular rhythm Gastrointestinal (Abdomen): normal bowel sounds, soft, nontender, no hepatosplenomegaly Musculoskeletal: No pedal edema Neurologic: PERRL, EOMI, accommodation nl, no face palsy, no dysarthria Psychiatric: AOx3 Results & Data Results & Data Vital Signs (Past 12 Hours) Vital Signs Temp Pulse Pulse Pulse Resp BP Pulse Ox 05/17/25 10:26 69 05/17/25 07:00 36.6 C 58 L 18 134/81 96 05/17/25 03:20 36.7 C 63 16 123/57 L 93 05/16/25 23:26 36.6 C 61 17 127/72 97 O2 Del Method 05/17/25 10:26 05/17/25 07:00 Room Air 05/17/25 03:20 Room Air 05/16/25 23:26 Room Air Laboratory Results Abnormal lab results 05/16/25 05/17/25 05/17/25 Range/Units 21:06 06:00 10:44 WBC 11.50 H (4.8-10.8) K/ul RBC 2.70 L 2.60 L (4.20-5.40) M/uL Hgb 9.1 L 8.5 L (12.0-16.0) g/dL Hct 26.3 L 25.1 L (37.0-47.0) % Plt Count 126 L 111 L (130-400) K/uL Chloride 109 H (98-107) mmol/L BUN/Creatinine Ratio 20.6 H (10-20) Calcium 8.2 L (8.6-10.3) mg/dl Total Bilirubin 1.3 H (0.2-1.0) mg/dl ALT 6 L (7-52) U/L Total Protein 5.6 L (6.0-8.3) gm/dl Albumin 3.0 L (3.4-5.0) gm/dl Urine Appearance (Clear) Urine Ketones (Negative) Urine Blood (Negative) Urine Nitrite (Negative) Ur Leukocyte Esterase (Negative) Urine WBC (Auto) (0-5) /hpf U Hyaline Cast (Auto) (0-2) /lpf U Epithel Cells (Auto) (0-2) /hpf Urine Bacteria (Auto) (None Seen) Urine Mucus (None Prsent) Stl C. diff Tox B Gene Positive Cdiff Gene A (Neg) 05/17/25 05/17/25 Range/Units 12:03 Unknown WBC (4.8-10.8) K/ul RBC (4.20-5.40) M/uL Hgb 8.1 L (12.0-16.0) g/dL Hct 23.7 L (37.0-47.0) % Plt Count (130-400) K/uL Chloride (98-107) mmol/L BUN/Creatinine Ratio (10-20) Calcium (8.6-10.3) mg/dl Total Bilirubin (0.2-1.0) mg/dl ALT (7-52) U/L Total Protein (6.0-8.3) gm/dl Albumin (3.4-5.0) gm/dl Urine Appearance Cloudy A (Clear) Urine Ketones Trace H (Negative) Urine Blood Trace H (Negative) Urine Nitrite Positive A (Negative) Ur Leukocyte Esterase 2+ H (Negative) Urine WBC (Auto) 21-50 H (0-5) /hpf U Hyaline Cast (Auto) 3-5 H (0-2) /lpf U Epithel Cells (Auto) 11-20 H (0-2) /hpf Urine Bacteria (Auto) 4+ H (None Seen) Urine Mucus Present A (None Prsent) Stl C. diff Tox B Gene (Neg) (1) GI (gastrointestinal hemorrhage) GI bleed type/associated pathology: unspecified gastrointestinal hemorrhage type Qualified Code(s): K92.2 - Gastrointestinal hemorrhage, unspecified
[2025-05-17 12:36] LABS: Cdiff Toxin B Gene (2yr or >) Positive Cdiff Gene (Neg)
[2025-05-17 12:39] LABS: Hematocrit (blood only) 23.7 % (37.0-47.0); Hemoglobin 8.1 g/dL (12.0-16.0)
[2025-05-17 13:13] LABS: Cdiff Toxin A+B Negative Cdiff Toxin (Negative)
[2025-05-17] MEDS: DONEPEZIL HCL 10 MG TAB PO SCH (15:31)
[2025-05-17] MEDS: cefTRIAXone SODIUM 1,000 MG/50 ML BAG IV SCH (16:38)
[2025-05-17] MEDS: ADVANCED PROBIOTIC 625 MG CAPSULE PO SCH (16:38)
[2025-05-17 18:41] LABS: Hematocrit (blood only) 24.8 % (37.0-47.0); Hemoglobin 8.5 g/dL (12.0-16.0)
[2025-05-17] MEDS: PANTOprazole 40 MG/10 ML SYR IV SCH (20:44)
[2025-05-18 00:47] LABS: Hematocrit (blood only) 24.3 % (37.0-47.0); Hemoglobin 8.2 g/dL (12.0-16.0)
[2025-05-18 05:28] LABS: Hematocrit (blood only) 21.9 % (37.0-47.0); Hemoglobin 7.4 g/dL (12.0-16.0); Mean Corpuscular Hemoglobin 33.0 pg (25.0-34.0); Mean Corpuscular Volume 97.8 fL (80.0-100.0); Platelet Count 104 K/uL (130-400); RDW Standard Deviation 45.4 fL (36.4-46.3); Red Blood Count 2.24 M/uL (4.20-5.40); White Blood Count 7.06 K/ul (4.8-10.8)
[2025-05-18 05:53] LABS: Alanine Aminotransferase 6.0 U/L (7-52); Albumin Globulin Ratio 1.0 (0.9-2); Albumin Level 2.8 gm/dl (3.4-5.0); Alkaline Phosphatase 35.0 U/L (34-104); Anion Gap 6.0 (3-11); Bilirubin,Total 0.8 mg/dl (0.2-1.0); Blood Urea Nitrogen 19.0 mg/dl (6-23); Calcium 8.0 mg/dl (8.6-10.3); Carbon Dioxide 24.0 mmol/L (21-32); Chloride 111.0 mmol/L (98-107); Creatinine Clr Calc Pharmacy 28.7 ml/min; Globulin 2.8 gm/dl (2.5-4.0); Glucose 89.0 mg/dl (70-99(Fasting)); Potassium 3.7 mmol/L (3.5-5.1); Sodium 141.0 mmol/L (136-145); Total Protein 5.6 gm/dl (6.0-8.3)
[2025-05-18 06:05] LABS: INR 1.2 (0.9-1.1); Prothrombin Time 12.1 Seconds (9.0-12.0)
[2025-05-18 11:48] LABS: Adenovirus F 40/41 PCR Not Detected (NotDetected); Campylobacter PCR Not Detected (NotDetected); Enteroaggregative E.coli(EAEC) Not Detected (NotDetected); Shiga-like Toxin E.coli (STEC) Not Detected (NotDetected); Vibrio species PCR Not Detected (NotDetected)
[2025-05-18 11:58] LABS: Hematocrit (blood only) 24.3 % (37.0-47.0); Hemoglobin 8.1 g/dL (12.0-16.0)
--- NOTE | 2025-05-18 12:45 | Hospitalist Progress Note ---
Date of Service May 18, 2025 Assessment & Plan (1) GI (gastrointestinal hemorrhage): (2) Ecchymosis: (3) Supratherapeutic INR: (4) Warfarin anticoagulation: (5) Atrial fibrillation: Plan 85 year old woman with pmhx of chronic atrial fibrillation, CKD stage 3b, osteoporosis, Alzheimers disease, hx of left breast cancer, GERD, hx of DVT, HTN who presents for weakness, fatigue, blood per rectum, bruising on head 2/2 possible upper and lower GI tract hemorrhage in setting of supratherapeutic INR. #Acute Blood Loss Anemia #Gastrointestinal Bleed #Chronic Diarrhea #Hx of C. diff #Supratherapeutic INR Per Admitting Provider, rectal exam with bright red blood and occult blood positive as well Has hx of recent c. diff infections refractory to treatment Per Admitting Provider, she has had recent dosing adjustments and memory issues so may have taken more warfarin than needed Labs on admission was notable for INR >9.5, Hb 10.4 S/P Kcentra and vitamin K INR down to 1.2 today Hb trended down from 10.4 on admission to 7.4 this AM but recheck this afternoon is 8.1 Has been stable in 8s for the past 24h GI eval noted In view of liquid dark stools, I discussed with GI Dr Escalante who recommends keeping NPO and continuing to monitor. He will review Transfuse prn for Hb <7. Patient agreeable to transfusion C diff gene positive but negative toxin Continue to hold warfarin for now #UTI UA suggestive of UTI UCx growing E coli Patient is poor historian due to cognitive impairment Continue IV ceftriaxone and follow up UCx sensitivities Continue probiotics #CKD Stage 3b Stable #Alzheimers Continue donepezil #Osteoporosis F/u outpatient #GERD On protonix #Hx of DVT #Chronic Atrial Fibrillation Anticoagulation on hold as above I spent a total of 50 minutes coordinating, documenting and providing care for this patient excluding time spent in performance of separately billed services Admission and Anticipated Discharge Date Admission Date: May 16, 2025 Subjective Patient seen and examined Reports feeling weak Had melanotic stool during my evaluation Denied any abd pain, dizziness, cough, SOB, GUPTA RN reports this is her 4th BM today Physical Exam Constitutional: + well hydrated; no acute distress Eyes: PERRL, conjunctivae normal, anicteric sclerae ENMT: external ear and nose normal, oropharynx normal Respiratory: normal respiratory effort, lungs clear to auscultation Cardiovascular: Rate/Rhythm: regular rate and regular rhythm Gastrointestinal (Abdomen): normal bowel sounds, soft, nontender, no hepatosplenomegaly Musculoskeletal: No pedal edema Neurologic: PERRL, EOMI, accommodation nl, no face palsy, no dysarthria Psychiatric: Alert and oriented to person, place, month/year Results & Data Results & Data Vital Signs (Past 12 Hours) Vital Signs Temp Pulse Resp BP Pulse Ox O2 Del Method 05/18/25 11:30 36.7 C 62 17 144/76 H 94 Room Air 05/18/25 10:00 Room Air 05/18/25 08:00 36.7 C 71 17 148/72 H 98 Room Air 05/18/25 03:33 36.7 C 74 16 143/62 H 94 Room Air Laboratory Results Abnormal lab results 05/17/25 05/18/25 05/18/25 Range/Units 18:04 00:12 05:00 RBC 2.24 L (4.20-5.40) M/uL Hgb 8.5 L 8.2 L 7.4 L (12.0-16.0) g/dL Hct 24.8 L 24.3 L 21.9 L (37.0-47.0) % Plt Count 104 L (130-400) K/uL PT 12.1 H (9.0-12.0) Seconds INR 1.2 H (0.9-1.1) Chloride 111 H (98-107) mmol/L Calcium 8.0 L (8.6-10.3) mg/dl ALT 6 L (7-52) U/L Total Protein 5.6 L (6.0-8.3) gm/dl Albumin 2.8 L (3.4-5.0) gm/dl 05/18/25 Range/Units 11:42 RBC (4.20-5.40) M/uL Hgb 8.1 L (12.0-16.0) g/dL Hct 24.3 L (37.0-47.0) % Plt Count (130-400) K/uL PT (9.0-12.0) Seconds INR (0.9-1.1) Chloride (98-107) mmol/L Calcium (8.6-10.3) mg/dl ALT (7-52) U/L Total Protein (6.0-8.3) gm/dl Albumin (3.4-5.0) gm/dl (1) GI (gastrointestinal hemorrhage) GI bleed type/associated pathology: unspecified gastrointestinal hemorrhage type Qualified Code(s): K92.2 - Gastrointestinal hemorrhage, unspecified
[2025-05-18] MEDS: D5W AND NSS 1,000 ML IV SCH (14:09)
--- NOTE | 2025-05-18 16:41 | Gastroenterology Progress Note ---
Date of Service May 18, 2025 Assessment & Plan (1) GI (gastrointestinal hemorrhage): Plan: Coagulopathy normalized with holding Coumadin. Hemoglobin 8.1 relatively stable now and hemodynamically stable. In light of initial presentation could consider endoscopy. I discussed this with family and they are agreeable. We could proceed with endoscopy on Tuesday if medically cleared. Admission and Anticipated Discharge Date Admission Date: May 16, 2025 Subjective Has been having some loose dark stool several times today no black tarry stool no shortness of breath no chest pain Physical Exam Physical Exam: No acute distress Respiratory rate regular Cardiac rhythm regular Abdomen soft nontender Results & Data Results & Data Vital Signs (Past 12 Hours) Vital Signs Temp Pulse Resp BP Pulse Ox O2 Del Method 05/18/25 11:30 36.7 C 62 17 144/76 H 94 Room Air 05/18/25 10:00 Room Air 05/18/25 08:00 36.7 C 71 17 148/72 H 98 Room Air Laboratory Results Laboratory Results - last 48 hr 05/16/25 05/16/25 05/16/25 21:06 22:00 Unknown WBC 11.50 H RBC 2.70 L Hgb 9.1 L Hct 26.3 L MCV 97.4 MCH 33.7 MCHC 34.6 RDW Std Deviation 44.9 RDW Coeff of Janee 12.8 Plt Count 126 L MPV 11.1 PT INR Sodium Potassium Chloride Carbon Dioxide Anion Gap BUN Creatinine Est Cr Clr Drug Dosing eGFR BUN/Creatinine Ratio Glucose Calcium Phosphorus Magnesium Total Bilirubin AST ALT Alkaline Phosphatase Total Protein Albumin Globulin Albumin/Globulin Ratio Urine Color Urine Appearance Urine pH Ur Specific [place] Urine Protein Urine Glucose (UA) Urine Ketones Urine Blood Urine Nitrite Urine Bilirubin Urine Urobilinogen Ur Leukocyte Esterase Urine WBC (Auto) Urine RBC (Auto) U Hyaline Cast (Auto) U Epithel Cells (Auto) Urine Bacteria (Auto) Urine Mucus Urine Comment Stl C. cayetanensis PCR Stool Rotavirus A PCR Stl Adenov F 40/41 PCR Stool Astrovirus (PCR) Stool Campylobacter PCR Stl C. diff Tox B Gene Cancelled Stl C.difficile Tox A&B Stl C. diff 027-NAP1-BI Cancelled Stool Cryptosporidium PCR Stl E.coli Shiga Tox PCR Stool E coli O157 PCR Stl Enterotoxigenic E PCR Stool EPEC (PCR) Stool EAEC (PCR) Stl E. histolytica PCR Stool Giardia Lamblia PCR Stool Salmonella PCR Stool Sapovirus (PCR) Stl P. shigelloides PCR Stl Shigella/EIEC PCR St Y.enterocolitica PCR Stool Vibrio (PCR) Stl Vibrio cholerae PCR Stl Norovirus GI/GII PCR Adenovirus (PCR) Not Detected B. pertussis DNA (PCR) Not Detected B.parapertussis DNA PCR Not Detected C. pneumoniae DNA (PCR) Not Detected Coronavirus OC43 (PCR) Not Detected Coronavirus HKU1 (PCR) Not Detected Coronavirus 229E (PCR) Not Detected SARS-CoV-2 (PCR) Not Detected Coronavirus NL63 (PCR) Not Detected Human Metapneumovir PCR Not Detected Influenza Type A (PCR) Not Detected Influenza Type B (PCR) Not Detected M. pneumoniae (PCR) Not Detected Parainfluenza 1 (PCR) Not Detected Parainfluenza 2 (PCR) Not Detected Parainfluenza 3 (PCR) Not Detected Parainfluenza 4 (PCR) Not Detected RSV (PCR) Not Detected Entero/Rhino (PCR) Not Detected 05/17/25 05/17/25 05/17/25 06:00 10:44 12:03 WBC 8.69 RBC 2.60 L Hgb 8.5 L 8.1 L Hct 25.1 L 23.7 L MCV 96.5 MCH 32.7 MCHC 33.9 RDW Std Deviation 44.9 RDW Coeff of Janee 12.9 Plt Count 111 L MPV 11.3 PT 11.2 INR 1.1 Sodium 139 Potassium 4.1 Chloride 109 H Carbon Dioxide 23 Anion Gap 7 BUN 22 Creatinine 1.07 Est Cr Clr Drug Dosing 28.5 eGFR 50.59 BUN/Creatinine Ratio 20.6 H Glucose 89 Calcium 8.2 L Phosphorus 3.0 Magnesium 1.9 Total Bilirubin 1.3 H AST 15 ALT 6 L Alkaline Phosphatase 36 Total Protein 5.6 L Albumin 3.0 L Globulin 2.6 Albumin/Globulin Ratio 1.2 Urine Color Urine Appearance Urine pH Ur Specific [place] Urine Protein Urine Glucose (UA) Urine Ketones Urine Blood Urine Nitrite Urine Bilirubin Urine Urobilinogen Ur Leukocyte Esterase Urine WBC (Auto) Urine RBC (Auto) U Hyaline Cast (Auto) U Epithel Cells (Auto) Urine Bacteria (Auto) Urine Mucus Urine Comment Stl C. cayetanensis PCR Cancelled Stool Rotavirus A PCR Cancelled Stl Adenov F 40 PCR Cancelled Stool Astrovirus (PCR) Cancelled Stool Campylobacter PCR Cancelled Stl C. diff Tox B Gene Positive Cdiff Gene A Stl C.difficile Tox A&B Negative Cdiff Toxin Stl C. diff 027-NAP1-[id number] NEGATIVE Stool Cryptosporidium PCR Cancelled Stl E.coli Shiga Tox PCR Cancelled Stool E coli O157 PCR Cancelled Stl Enterotoxigenic E PCR Cancelled Stool EPEC (PCR) Cancelled Stool EAEC (PCR) Cancelled Stl E. histolytica PCR Cancelled Stool Giardia Lamblia PCR Cancelled Stool Salmonella PCR Cancelled Stool Sapovirus (PCR) Cancelled Stl P. shigelloides PCR Cancelled Stl Shigella/EIEC PCR Cancelled St Y.enterocolitica PCR Cancelled Stool Vibrio (PCR) Cancelled Stl Vibrio cholerae PCR Cancelled Stl Norovirus GI/GII PCR Cancelled Adenovirus (PCR) B. pertussis DNA (PCR) B.parapertussis DNA PCR C. pneumoniae DNA (PCR) Coronavirus OC43 (PCR) Coronavirus HKU1 (PCR) Coronavirus 229E (PCR) SARS-CoV-2 (PCR) Coronavirus NL63 (PCR) Human Metapneumovir PCR Influenza Type A (PCR) Influenza Type B (PCR) M. pneumoniae (PCR) Parainfluenza 1 (PCR) Parainfluenza 2 (PCR) Parainfluenza 3 (PCR) Parainfluenza 4 (PCR) RSV (PCR) Entero/Rhino (PCR) 05/17/25 05/17/25 05/18/25 18:04 Unknown 00:12 WBC RBC Hgb 8.5 L 8.2 L Hct 24.8 L 24.3 L MCV MCH MCHC RDW Std Deviation RDW Coeff of Janee Plt Count MPV PT INR Sodium Potassium Chloride Carbon Dioxide Anion Gap BUN Creatinine Est Cr Clr Drug Dosing eGFR BUN/Creatinine Ratio Glucose Calcium Phosphorus Magnesium Total Bilirubin AST ALT Alkaline Phosphatase Total Protein Albumin Globulin Albumin/Globulin Ratio Urine Color Yellow Urine Appearance Cloudy A Urine pH 5.0 Ur Specific [place] 1.020 Urine Protein Negative Urine Glucose (UA) Negative Urine Ketones Trace H Urine Blood Trace H Urine Nitrite Positive A Urine Bilirubin Negative Urine Urobilinogen Negative Ur Leukocyte Esterase 2+ H Urine WBC (Auto) 21-50 H Urine RBC (Auto) 0-2 U Hyaline Cast (Auto) 3-5 H U Epithel Cells (Auto) 11-20 H Urine Bacteria (Auto) 4+ H Urine Mucus Present A Urine Comment Stl C. cayetanensis PCR Stool Rotavirus A PCR Stl Adenov F PCR Stool Astrovirus (PCR) Stool Campylobacter PCR Stl C. diff Tox B Gene Stl C.difficile Tox A&B Stl C. diff 027-NAP1-[id number] Stool Cryptosporidium PCR Stl E.coli Shiga Tox PCR Stool E coli O157 PCR Stl Enterotoxigenic E PCR Stool EPEC (PCR) Stool EAEC (PCR) Stl E. histolytica PCR Stool Giardia Lamblia PCR Stool Salmonella PCR Stool Sapovirus (PCR) Stl P. shigelloides PCR Stl Shigella/EIEC PCR St Y.enterocolitica PCR Stool Vibrio (PCR) Stl Vibrio cholerae PCR Stl Norovirus GI/GII PCR Adenovirus (PCR) B. pertussis DNA (PCR) B.parapertussis DNA PCR C. pneumoniae DNA (PCR) Coronavirus OC43 (PCR) Coronavirus HKU1 (PCR) Coronavirus 229E (PCR) SARS-CoV-2 (PCR) Coronavirus NL63 (PCR) Human Metapneumovir PCR Influenza Type A (PCR) Influenza Type B (PCR) M. pneumoniae (PCR) Parainfluenza 1 (PCR) Parainfluenza 2 (PCR) Parainfluenza 3 (PCR) Parainfluenza 4 (PCR) RSV (PCR) Entero/Rhino (PCR) 05/18/25 05/18/25 05/18/25 05:00 11:42 Unknown WBC 7.06 RBC 2.24 L Hgb 7.4 L 8.1 L Hct 21.9 L 24.3 L MCV 97.8 MCH 33.0 MCHC 33.8 RDW Std Deviation 45.4 RDW Coeff of Janee 12.9 Plt Count 104 L MPV 11.0 PT 12.1 H INR 1.2 H Sodium 141 Potassium 3.7 Chloride 111 H Carbon Dioxide 24 Anion Gap 6 BUN 19 Creatinine 1.06 Est Cr Clr Drug Dosing 28.7 eGFR 51.16 BUN/Creatinine Ratio 17.9 Glucose 89 Calcium 8.0 L Phosphorus Magnesium Total Bilirubin 0.8 D AST 17 ALT 6 L Alkaline Phosphatase 35 Total Protein 5.6 L Albumin 2.8 L Globulin 2.8 Albumin/Globulin Ratio 1.0 Urine Color Urine Appearance Urine pH Ur Specific [place] Urine Protein Urine Glucose (UA) Urine Ketones Urine Blood Urine Nitrite Urine Bilirubin Urine Urobilinogen Ur Leukocyte Esterase Urine WBC (Auto) Urine RBC (Auto) U Hyaline Cast (Auto) U Epithel Cells (Auto) Urine Bacteria (Auto) Urine Mucus Urine Comment Stl C. cayetanensis PCR Not Detected Stool Rotavirus A PCR Not Detected Stl Adenov F 40/41 PCR Not Detected Stool Astrovirus (PCR) Not Detected Stool Campylobacter PCR Not Detected Stl C. diff Tox B Gene Stl C.difficile Tox A&B Stl C. diff 027-[id number] Stool Cryptosporidium PCR Not Detected Stl E.coli Shiga Tox PCR Not Detected Stool E coli O157 PCR Stl Enterotoxigenic E PCR Not Detected Stool EPEC (PCR) Not Detected Stool EAEC (PCR) Not Detected Stl E. histolytica PCR Not Detected Stool Giardia Lamblia PCR Not Detected Stool Salmonella PCR Not Detected Stool Sapovirus (PCR) Not Detected Stl P. shigelloides PCR Not Detected Stl Shigella/EIEC PCR Not Detected St Y.enterocolitica PCR Not Detected Stool Vibrio (PCR) Not Detected Stl Vibrio cholerae PCR Not Detected Stl Norovirus GI/GII PCR Not Detected Adenovirus (PCR) B. pertussis DNA (PCR) B.parapertussis DNA PCR C. pneumoniae DNA (PCR) Coronavirus OC43 (PCR) Coronavirus HKU1 (PCR) Coronavirus 229E (PCR) SARS-CoV-2 (PCR) Coronavirus NL63 (PCR) Human Metapneumovir PCR Influenza Type A (PCR) Influenza Type B (PCR) M. pneumoniae (PCR) Parainfluenza 1 (PCR) Parainfluenza 2 (PCR) Parainfluenza 3 (PCR) Parainfluenza 4 (PCR) RSV (PCR) Entero/Rhino (PCR) PG Care Time/CCT Total # of Minutes Spent Total Time Spent with Patient: Total time spent is greater than 50% in coordination of care (as documented) at patient's floor/unit and/or counseling patient: Coding Level of Care Code 82394 SUB INP/OBS CARE 2/35MIN Diagnoses GI (gastrointestinal hemorrhage) K92.2 GI bleed type/associated pathology: unspecified gastrointestinal hemorrhage type (1) GI (gastrointestinal hemorrhage) GI bleed type/associated pathology: unspecified gastrointestinal hemorrhage type Qualified Code(s): K92.2 - Gastrointestinal hemorrhage, unspecified
[2025-05-18 18:48] LABS: Hematocrit (blood only) 24.6 % (37.0-47.0); Hemoglobin 8.2 g/dL (12.0-16.0)
[2025-05-19 00:31] LABS: Hematocrit (blood only) 26.1 % (37.0-47.0); Hemoglobin 8.7 g/dL (12.0-16.0)
[2025-05-19 07:26] LABS: Hematocrit (blood only) 24.7 % (37.0-47.0); Hemoglobin 8.1 g/dL (12.0-16.0); Mean Corpuscular Hemoglobin 32.4 pg (25.0-34.0); Mean Corpuscular Volume 98.8 fL (80.0-100.0); Platelet Count 111 K/uL (130-400); RDW Standard Deviation 46.0 fL (36.4-46.3); Red Blood Count 2.50 M/uL (4.20-5.40); White Blood Count 5.37 K/ul (4.8-10.8)
[2025-05-19 07:42] LABS: Alanine Aminotransferase 5.0 U/L (7-52); Albumin Globulin Ratio 1.1 (0.9-2); Albumin Level 3.0 gm/dl (3.4-5.0); Alkaline Phosphatase 35.0 U/L (34-104); Anion Gap 7.0 (3-11); Bilirubin,Total 0.7 mg/dl (0.2-1.0); Blood Urea Nitrogen 11.0 mg/dl (6-23); Calcium 7.9 mg/dl (8.6-10.3); Carbon Dioxide 23.0 mmol/L (21-32); Chloride 112.0 mmol/L (98-107); Creatinine Clr Calc Pharmacy 32.1 ml/min; Globulin 2.7 gm/dl (2.5-4.0); Glucose 101.0 mg/dl (70-99(Fasting)); Potassium 3.5 mmol/L (3.5-5.1); Sodium 142.0 mmol/L (136-145); Total Protein 5.7 gm/dl (6.0-8.3)
--- NOTE | 2025-05-19 09:21 | Gastroenterology Progress Note ---
Date of Service May 19, 2025 Assessment & Plan (1) GI (gastrointestinal hemorrhage): Plan: Unclear etiology of GI blood loss. Reported history suggests melena as well as bright red blood per rectum. In light of this confusion plan to do endoscopy and colonoscopy tomorrow if family agreeable. Colonoscopy will help us also evaluate causes for diarrhea. Admission and Anticipated Discharge Date Admission Date: May 16, 2025 Subjective Patient resting comfortably denies abdominal pain shortness of breath or chest pain. Denies overt bleeding at this time. Physical Exam Physical Exam: No acute distress Respiratory rate regular Cardiac rhythm regular Abdomen soft nontender Results & Data Results & Data Vital Signs (Past 12 Hours) Vital Signs Temp Pulse Resp BP Pulse Ox O2 Del Method 05/19/25 08:50 36.8 C 54 L 18 127/65 98 Room Air 05/19/25 03:56 36.5 C 70 16 151/64 H 96 Room Air 05/18/25 23:29 36.8 C 56 L 16 151/69 H 93 Room Air Laboratory Results Laboratory Results - last 48 hr 05/17/25 05/17/25 05/17/25 10:44 12:03 18:04 WBC RBC Hgb 8.1 L 8.5 L Hct 23.7 L 24.8 L MCV MCH MCHC RDW Std Deviation RDW Coeff of Janee Plt Count MPV PT INR Sodium Potassium Chloride Carbon Dioxide Anion Gap BUN Creatinine Est Cr Clr Drug Dosing eGFR BUN/Creatinine Ratio Glucose Calcium Total Bilirubin AST ALT Alkaline Phosphatase Total Protein Albumin Globulin Albumin/Globulin Ratio Stl C. cayetanensis PCR Cancelled Stool Rotavirus A PCR Cancelled Stl Adenov F 40/41 PCR Cancelled Stool Astrovirus (PCR) Cancelled Stool Campylobacter PCR Cancelled Stl C. diff Tox B Gene Positive Cdiff Gene A Stl C.difficile Tox A&B Negative Cdiff Toxin Stl C. diff [id number]-[id number] NEGATIVE Stool Cryptosporidium PCR Cancelled Stl E.coli Shiga Tox PCR Cancelled Stool E coli O157 PCR Cancelled Stl Enterotoxigenic E PCR Cancelled Stool EPEC (PCR) Cancelled Stool EAEC (PCR) Cancelled Stl E. histolytica PCR Cancelled Stool Giardia Lamblia PCR Cancelled Stool Salmonella PCR Cancelled Stool Sapovirus (PCR) Cancelled Stl P. shigelloides PCR Cancelled Stl Shigella/EIEC PCR Cancelled St Y.enterocolitica PCR Cancelled Stool Vibrio (PCR) Cancelled Stl Vibrio cholerae PCR Cancelled Stl Norovirus GI/GII PCR Cancelled 05/18/25 05/18/25 05/18/25 00:12 05:00 11:42 WBC 7.06 RBC 2.24 L Hgb 8.2 L 7.4 L 8.1 L Hct 24.3 L 21.9 L 24.3 L MCV 97.8 MCH 33.0 MCHC 33.8 RDW Std Deviation 45.4 RDW Coeff of Janee 12.9 Plt Count 104 L MPV 11.0 PT 12.1 H INR 1.2 H Sodium 141 Potassium 3.7 Chloride 111 H Carbon Dioxide 24 Anion Gap 6 BUN 19 Creatinine 1.06 Est Cr Clr Drug Dosing 28.7 eGFR 51.16 BUN/Creatinine Ratio 17.9 Glucose 89 Calcium 8.0 L Total Bilirubin 0.8 D AST 17 ALT 6 L Alkaline Phosphatase 35 Total Protein 5.6 L Albumin 2.8 L Globulin 2.8 Albumin/Globulin Ratio 1.0 Stl C. cayetanensis PCR Stool Rotavirus A PCR Stl Adenov F PCR Stool Astrovirus (PCR) Stool Campylobacter PCR Stl C. diff Tox B Gene Stl C.difficile Tox A&B Stl C. diff 027-NAP1-[id number] Stool Cryptosporidium PCR Stl E.coli Shiga Tox PCR Stool E coli O157 PCR Stl Enterotoxigenic E PCR Stool EPEC (PCR) Stool EAEC (PCR) Stl E. histolytica PCR Stool Giardia Lamblia PCR Stool Salmonella PCR Stool Sapovirus (PCR) Stl P. shigelloides PCR Stl Shigella/EIEC PCR St Y.enterocolitica PCR Stool Vibrio (PCR) Stl Vibrio cholerae PCR Stl Norovirus GI/GII PCR 05/18/25 05/18/25 05/19/25 18:22 Unknown 00:12 WBC RBC Hgb 8.2 L 8.7 L Hct 24.6 L 26.1 L MCV MCH MCHC RDW Std Deviation RDW Coeff of Janee Plt Count MPV PT INR Sodium Potassium Chloride Carbon Dioxide Anion Gap BUN Creatinine Est Cr Clr Drug Dosing eGFR BUN/Creatinine Ratio Glucose Calcium Total Bilirubin AST ALT Alkaline Phosphatase Total Protein Albumin Globulin Albumin/Globulin Ratio Stl C. cayetanensis PCR Not Detected Stool Rotavirus A PCR Not Detected Stl Adenov F 40 PCR Not Detected Stool Astrovirus (PCR) Not Detected Stool Campylobacter PCR Not Detected Stl C. diff Tox B Gene Stl C.difficile Tox A&B Stl C. diff 027-NAP1-[id number] Stool Cryptosporidium PCR Not Detected Stl E.coli Shiga Tox PCR Not Detected Stool E coli O157 PCR Stl Enterotoxigenic E PCR Not Detected Stool EPEC (PCR) Not Detected Stool EAEC (PCR) Not Detected Stl E. histolytica PCR Not Detected Stool Giardia Lamblia PCR Not Detected Stool Salmonella PCR Not Detected Stool Sapovirus (PCR) Not Detected Stl P. shigelloides PCR Not Detected Stl Shigella/EIEC PCR Not Detected St Y.enterocolitica PCR Not Detected Stool Vibrio (PCR) Not Detected Stl Vibrio cholerae PCR Not Detected Stl Norovirus GI/GII PCR Not Detected 05/19/25 06:42 WBC 5.37 RBC 2.50 L Hgb 8.1 L Hct 24.7 L MCV 98.8 MCH 32.4 MCHC 32.8 RDW Std Deviation 46.0 RDW Coeff of Janee 13.1 Plt Count 111 L MPV 10.9 PT INR Sodium 142 Potassium 3.5 Chloride 112 H Carbon Dioxide 23 Anion Gap 7 BUN 11 Creatinine 0.95 Est Cr Clr Drug Dosing 32.1 eGFR 58.35 BUN/Creatinine Ratio 11.6 Glucose 101 H Calcium 7.9 L Total Bilirubin 0.7 AST 17 ALT 5 L Alkaline Phosphatase 35 Total Protein 5.7 L Albumin 3.0 L Globulin 2.7 Albumin/Globulin Ratio 1.1 Stl C. cayetanensis PCR Stool Rotavirus A PCR Stl Adenov F PCR Stool Astrovirus (PCR) Stool Campylobacter PCR Stl C. diff Tox B Gene Stl C.difficile Tox A&B Stl C. diff 027-NAP1-BI Stool Cryptosporidium PCR Stl E.coli Shiga Tox PCR Stool E coli O157 PCR Stl Enterotoxigenic E PCR Stool EPEC (PCR) Stool EAEC (PCR) Stl E. histolytica PCR Stool Giardia Lamblia PCR Stool Salmonella PCR Stool Sapovirus (PCR) Stl P. shigelloides PCR Stl Shigella/EIEC PCR St Y.enterocolitica PCR Stool Vibrio (PCR) Stl Vibrio cholerae PCR Stl Norovirus GI/GII PCR PG Care Time/CCT Total # of Minutes Spent Total Time Spent with Patient: Total time spent is greater than 50% in coordination of care (as documented) at patient's floor/unit and/or counseling patient: Coding Level of Care Code 42737 SUB INP/OBS CARE 235MIN Diagnoses GI (gastrointestinal hemorrhage) K92.2 GI bleed type/associated pathology: unspecified gastrointestinal hemorrhage type (1) GI (gastrointestinal hemorrhage) GI bleed type/associated pathology: unspecified gastrointestinal hemorrhage type Qualified Code(s): K92.2 - Gastrointestinal hemorrhage, unspecified
--- NOTE | 2025-05-19 11:53 | Urology Consultation ---
Date of Consultation May 19, 2025 Assessment & Plan (1) Prolapse of female pelvic organs: 85F with advanced prolapse BLADE and UTI. - agree with treatment uti appears carmona sensitive on recent culture - recommend outpatient referral to urogynecology for asessment if this is not possible I am happy to see her however I do not typically manage prolapse and this may be intimately related to her kaushik bothersome complaints, IE dysuria and incontinence - please call with questions (2) BLADE (stress urinary incontinence, female): History of Present Illness Reason for Consultation: prolapse, UTI, urinary incontinence Attending Physician: Yasmin Ahn MD History of Present Illness 85F with longstanding uterine prolapse, not bothered by this but staff report vaginal eversion,some bother with urinary incontinence, not having often treatment for UTI as per patient but does have some burning with urination and urinary discomfort daily, when has incontinence just notices being wet does not have strong urge to void therefore BLADE. Does seem to have infection and being treated for same. Discussed infection can worsen symptoms and would ideally see her as outpatient for further assessment. Discussed probably kaushik approariate to see urogynecology as I dont manage prolapse as option and this may be related to her more bothersome complaints, agreeable to same. Gen: NAD Psych: Alert and Oriented Abd: Nontender nondistended : deferred Allergies Allergy/AdvReac Type Severity Reaction Status Date / Time peach Allergy Intermediate HIVES,NAUSEA Verified 05/16/25 16:10 AND VOMITING Home Medications Medication Instructions Recorded Confirmed Type acetaminophen 500 mg tablet 500 mg PO Q4H PRN Pain 05/16/25 05/16/25 History (Tylenol Extra Strength) calcium carbonate 500 mg PO BID 05/16/25 05/16/25 History cholecalciferol (vitamin D3) 50 50 mcg PO BID 05/16/25 05/16/25 History mcg (2,000 unit) capsule (Vitamin D3) colestipol 1 gram tablet 1 g PO BID 05/16/25 05/16/25 History diltiazem HCl 120 mg 120 mg PO QAM 05/16/25 05/16/25 History capsule,extended release 24 hr donepezil 10 mg tablet 10 mg PO QAM 05/16/25 05/16/25 History dorzolamide 22.3 mg-timolol 6.8 1 drp OPB QAM 05/16/25 05/16/25 History mg/mL eye drops estradiol 0.01% (0.1 mg/gram) 0.5 g vaginal DIRECTED 05/16/25 05/16/25 History vaginal cream iron 18 mg tablet 18 mg PO DAILY 05/16/25 05/16/25 History metoprolol tartrate 50 mg tablet 75 mg PO BID 05/16/25 05/16/25 History vkstrvum-[id number]-[id number] 8 mg-folic 400 1 tab PO DAILY 05/16/25 05/16/25 History mcg-K 50 mcg-lutein 300 mcg tablet (Multivitamin Women 50 Plus) silver sulfadiazine 1 % topical 1 applic topical TID 05/16/25 05/16/25 History cream warfarin 2 mg tablet 2 mg PO DIRECTED 05/16/25 05/16/25 History Patient History Medical History Warfarin anticoagulation Atrial fibrillation Arthritis Surgical History H/O total hysterectomy with bilateral salpingo-oophorectomy (BSO) Family History Sister Heart disease of [place] Father Heart disease Mother , of old age Breast cancer Social History Smoking Status: Former smoker Hx Alcohol Use: No Hx Substance Use: No Preferred Language: Taiwanese Communication Ability: Effective 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
--- NOTE | 2025-05-19 12:06 | Hospitalist Progress Note ---
Date of Service May 19, 2025 Assessment & Plan (1) GI (gastrointestinal hemorrhage): (2) Ecchymosis: (3) Supratherapeutic INR: (4) Warfarin anticoagulation: (5) Atrial fibrillation: Plan 85 year old woman with pmhx of chronic atrial fibrillation, CKD stage 3b, osteoporosis, Alzheimers disease, hx of left breast cancer, GERD, hx of DVT, HTN who presents for weakness, fatigue, blood per rectum, bruising on head 2/2 possible upper and lower GI tract hemorrhage in setting of supratherapeutic INR. #Acute Blood Loss Anemia #Gastrointestinal Bleed #Chronic Diarrhea #Hx of C. diff #Supratherapeutic INR Per Admitting Provider, rectal exam with bright red blood and occult blood positive as well Has hx of recent c. diff infections refractory to treatment Per Admitting Provider, she has had recent dosing adjustments and memory issues so may have taken more warfarin than needed Labs on admission was notable for INR >9.5, Hb 10.4 S/P Kcentra and vitamin K Hb trended down from 10.4 on admission to 8s GI eval noted Transfuse prn for Hb <7. Patient agreeable to transfusion C diff gene positive but negative toxin Continue to hold warfarin for now Plan for endoscopies tomorrow #UTI UA suggestive of UTI UCx growing E coli Patient is poor historian due to cognitive impairment Continue IV ceftriaxone #Vaginal prolapse Uro eval noted Patient has known vaginal prolapse and follows with Urogyn Dr Romaine Beyer outpatient #Chronic diarrhea History of c diff Continue probiotics #CKD Stage 3b Stable #Alzheimers Continue donepezil #Osteoporosis F/u outpatient #GERD On protonix #Hx of DVT #Chronic Atrial Fibrillation Anticoagulation on hold as above Called daughter and updated her. She stated she has talked to GI as well about planned procedure I spent a total of 50 minutes coordinating, documenting and providing care for this patient excluding time spent in performance of separately billed services Admission and Anticipated Discharge Date Admission Date: May 16, 2025 Subjective Patient seen and examined Still having dark stool. Some reddish per RN Denied abd pain, nausea, vomiting, dizziness, SOB, chest pain, cough Physical Exam Constitutional: + well hydrated; no acute distress Eyes: PERRL, conjunctivae normal, anicteric sclerae ENMT: external ear and nose normal, oropharynx normal Respiratory: normal respiratory effort, lungs clear to auscultation Cardiovascular: Rate/Rhythm: regular rate and regular rhythm Gastrointestinal (Abdomen): normal bowel sounds, soft, nontender, no hepatosplenomegaly Musculoskeletal: No pedal edema Neurologic: PERRL, EOMI, accommodation nl, no face palsy, no dysarthria Psychiatric: AOx3 Results & Data Results & Data Vital Signs (Past 12 Hours) Vital Signs Temp Pulse Pulse Resp BP Pulse Ox O2 Del Method 05/19/25 08:50 36.8 C 54 L 18 127/65 98 Room Air 05/19/25 04:59 59 L 05/19/25 03:56 36.5 C 70 16 151/64 H 96 Room Air Laboratory Results Abnormal lab results 05/18/25 05/19/25 05/19/25 Range/Units 18:22 00:12 06:42 RBC 2.50 L (4.20-5.40) M/uL Hgb 8.2 L 8.7 L 8.1 L (12.0-16.0) g/dL Hct 24.6 L 26.1 L 24.7 L (37.0-47.0) % Plt Count 111 L (130-400) K/uL Chloride 112 H (98-107) mmol/L Glucose 101 H (70-99(Fasting)) mg/dl Calcium 7.9 L (8.6-10.3) mg/dl ALT 5 L (7-52) U/L Total Protein 5.7 L (6.0-8.3) gm/dl Albumin 3.0 L (3.4-5.0) gm/dl 05/19/25 Range/Units 12:49 RBC (4.20-5.40) M/uL Hgb 9.4 L (12.0-16.0) g/dL Hct 28.6 L (37.0-47.0) % Plt Count (130-400) K/uL Chloride (98-107) mmol/L Glucose (70-99(Fasting)) mg/dl Calcium (8.6-10.3) mg/dl ALT (7-52) U/L Total Protein (6.0-8.3) gm/dl Albumin (3.4-5.0) gm/dl (1) GI (gastrointestinal hemorrhage) GI bleed type/associated pathology: unspecified gastrointestinal hemorrhage type Qualified Code(s): K92.2 - Gastrointestinal hemorrhage, unspecified
[2025-05-19] MEDS: LAVAGE SOLUTION 4000ML PO SCH (12:16)
[2025-05-19 13:06] LABS: Hematocrit (blood only) 28.6 % (37.0-47.0); Hemoglobin 9.4 g/dL (12.0-16.0)
[2025-05-19 18:55] LABS: Hematocrit (blood only) 27.1 % (37.0-47.0); Hemoglobin 8.9 g/dL (12.0-16.0)
[2025-05-20 00:57] LABS: Hematocrit (blood only) 24.9 % (37.0-47.0); Hemoglobin 8.5 g/dL (12.0-16.0)
[2025-05-20 06:08] LABS: Hematocrit (blood only) 23.7 % (37.0-47.0); Hemoglobin 7.9 g/dL (12.0-16.0); Mean Corpuscular Hemoglobin 32.6 pg (25.0-34.0); Mean Corpuscular Volume 97.9 fL (80.0-100.0); Platelet Count 118 K/uL (130-400); RDW Standard Deviation 45.6 fL (36.4-46.3); Red Blood Count 2.42 M/uL (4.20-5.40); White Blood Count 4.70 K/ul (4.8-10.8)
[2025-05-20 06:22] LABS: Anion Gap 6.0 (3-11); Blood Urea Nitrogen 7.0 mg/dl (6-23); Calcium 7.8 mg/dl (8.6-10.3); Carbon Dioxide 22.0 mmol/L (21-32); Chloride 114.0 mmol/L (98-107); Creatinine Clr Calc Pharmacy 33.5 ml/min; Glucose 100.0 mg/dl (70-99(Fasting)); Magnesium 1.4 mg/dl (1.7-2.4); Potassium 3.2 mmol/L (3.5-5.1); Sodium 142.0 mmol/L (136-145)
[2025-05-20 06:38] LABS: INR 1.7 (0.9-1.1); Prothrombin Time 17.0 Seconds (9.0-12.0)
--- NOTE | 2025-05-20 08:33 | Anesthesiology Consultation ---
Date of Service May 20, 2025 Assessment & Plan Chart Review Chart Review: Acceptable Risk for Surgery and Patient NOT seen in Pre Admission Testing Consults Requested none ASA ASA4 History Surgery Operation Date: 05/20/25 16:45 Proposed Procedures p Colonoscopy EGD Dr. Boris Escalante MD Height/Weight Height: 5 ft 1 in Weight: 54.1 kg Allergies Allergy/AdvReac Type Severity Reaction Status Date / Time peach Allergy Intermediate HIVES,NAUSEA Verified 05/16/25 16:10 AND VOMITING Medications Home Medications Medication Instructions Recorded Confirmed Last Taken acetaminophen 500 mg tablet 500 mg PO Q4H PRN Pain 05/16/25 05/16/25 Unknown (Tylenol Extra Strength) calcium carbonate 500 mg PO BID 05/16/25 05/16/25 05/15/25 cholecalciferol (vitamin D3) 50 50 mcg PO BID 05/16/25 05/16/25 05/15/25 mcg (2,000 unit) capsule (Vitamin D3) colestipol 1 gram tablet 1 g PO BID 05/16/25 05/16/25 05/15/25 diltiazem HCl 120 mg 120 mg PO QAM 05/16/25 05/16/25 05/15/25 capsule,extended release 24 hr donepezil 10 mg tablet 10 mg PO QAM 05/16/25 05/16/25 05/15/25 dorzolamide 22.3 mg-timolol 6.8 1 drp OPB QAM 05/16/25 05/16/25 05/15/25 mg/mL eye drops estradiol 0.01% (0.1 mg/gram) 0.5 g vaginal DIRECTED 05/16/25 05/16/25 Unknown vaginal cream iron 18 mg tablet 18 mg PO DAILY 05/16/25 05/16/25 05/15/25 metoprolol tartrate 50 mg tablet 75 mg PO BID 05/16/25 05/16/25 05/15/25 [id number] 8 mg-folic 400 1 tab PO DAILY 05/16/25 05/16/25 05/15/25 mcg-K 50 mcg-lutein 300 mcg tablet (Multivitamin Women 50 Plus) silver sulfadiazine 1 % topical 1 applic topical TID 05/16/25 05/16/25 Unknown cream warfarin 2 mg tablet 2 mg PO DIRECTED 05/16/25 05/16/25 Unknown Active Medications Generic Name Dose Route Start Last Admin Trade Name Baljinder PRN Reason Stop Dose Admin Colestipol HCl 1 gm 05/16/25 21:00 05/19/25 19:33 Colestipol Hcl 1 Gm Tab PO 06/15/25 20:59 1 gm BID DAISY Administration Donepezil HCl 10 mg 05/17/25 09:00 05/20/25 07:54 Donepezil Hcl 10 Mg Tab PO 06/16/25 08:59 10 mg QAM DAISY Administration Dorzolamide/Timolol 1 drops 05/17/25 09:00 05/20/25 07:55 Dorzolamide/Timolol 22.3/6.8mg/Ml 10 Ml Btl OPB 06/16/25 08:59 1 drops QAM DAISY Administration Ceftriaxone Sodium 1,000 mg in 50 mls @ 100 mls/hr 05/17/25 15:00 05/19/25 16:22 Rocephin IV 05/22/25 14:59 Infused Q24H DAISY Infusion Pantoprazole Sodium 40 mg in 10 mls @ 5 mls/min 05/17/25 21:00 05/19/25 19:32 Protonix IV 06/16/25 20:59 5 mls/min BID DAISY Administration Dextrose/Sodium Chloride 1,000 mls @ 75 mls/hr 05/18/25 13:15 05/20/25 05:39 D5w And Nss IV 05/21/25 13:14 75 mls/hr .[id number] DAISY Infusion Lactobacillus Acidophilus 1,250 mg 05/17/25 14:45 05/20/25 07:53 Advanced Probiotic 625 Mg Capsule PO 06/16/25 14:44 1,250 mg DAILY DAISY Administration Metoprolol Tartrate 75 mg 05/16/25 21:00 05/20/25 07:53 Metoprolol Tartrate 25 Mg Tab PO 06/15/25 20:59 75 mg BID DAISY Administration Polyethylene Glycol/Electrolytes 16 dose 05/19/25 11:15 05/19/25 12:16 Lavage Solution 4000ml PO 05/20/25 09:00 16 dose TODAY@1115 DAISY Administration Silver Sulfadiazine 1 appln 05/16/25 21:00 05/20/25 07:55 Silver Sulfadiazine 1% Cr 50 Gm Jar/Tube TOP 06/15/25 20:59 1 appln TID DAISY Administration Past Medical History Medical History Warfarin anticoagulation Atrial fibrillation Arthritis HTN HLD ASCVD Ao Thrombocytopenia Anemia Hyperchloremia COPD Exercise / Class Metabolic Activity III < 4 Walking/Shop/Light housework Past Family History Family History Sister Heart disease of [place] Father Heart disease Mother , of old age Breast cancer Past Surgical History Surgical History H/O total hysterectomy with bilateral salpingo-oophorectomy (BSO) Past Anesthesia History No Hx of Anesthesia Complications and No Family Hx of Anesthesia Complications History of PONV No Hx of PONV and No Hx of Motion Sickness Social History Smoking Status: Former smoker Hx Alcohol Use: No Hx Substance Use: No Physical Exam Vital Signs Last Vital Signs Temp 36.7 C 05/20/25 08:25 Pulse 54 L 05/20/25 08:25 Resp 18 05/20/25 08:25 BP 121/71 05/20/25 08:25 Pulse Ox 96 05/20/25 08:25 O2 Del Method Room Air 05/20/25 08:25 Testing Laboratory Results 05/20/25 05:27 05/20/25 05:27 PT 17.0 Seconds (9.0-12.0) H 05/20/25 05:27 INR 1.7 (0.9-1.1) H 05/20/25 05:27 APTT 86 Seconds (21-31) H* 05/16/25 12:01 Urine Color Yellow 05/17/25 Unknown Urine Appearance Cloudy (Clear) A 05/17/25 Unknown Urine pH 5.0 (4.5-7.5) 05/17/25 Unknown Ur Specific [place] 1.020 (1.000-1.030) 05/17/25 Unknown Urine Protein Negative (Negative) 05/17/25 Unknown Urine Glucose (UA) Negative (Negative) 05/17/25 Unknown Urine Ketones Trace (Negative) H 05/17/25 Unknown Urine Nitrite Positive (Negative) A 05/17/25 Unknown Ur Leukocyte Esterase 2+ (Negative) H 05/17/25 Unknown Urine WBC (Auto) 21-50 /hpf (0-5) H 05/17/25 Unknown Urine RBC (Auto) 0-2 /hpf (0-2) 05/17/25 Unknown U Hyaline Cast (Auto) 3-5 /lpf (0-2) H 05/17/25 Unknown U Epithel Cells (Auto) 11-20 /hpf (0-2) H 05/17/25 Unknown Urine Bacteria (Auto) 4+ (None Seen) H 05/17/25 Unknown 05/17/25 Unknown Urine Culture - Final Urine,Clean Catch Escherichia coli Electrocardiogram Date: 05/16/25 Findings: + SB @ (@ 55;Low voltage QRS;NS T wave abnormality) Echocardiogram Date: 03/16/19 EF: 55% LV Function: normal RWMA: + none Other Findings: + atrial enlargement (RA/LA- mild dilation), + LVH (mild) and + diastolic dysfunction (Grade 1) Valvular Disease: + no significant valvular disease and + MR (mild) TR-mild
[2025-05-20] MEDS: MAGNESIUM SULFATE / D5W 1 GM/100 ML BAG IV SCH (09:11)
[2025-05-20] MEDS: POTASSIUM CHLORIDE / WTR 10 MEQ/100 ML PLCT IV SCH (09:12)
[2025-05-20 09:17] LABS: INR 1.7 (0.9-1.1); Prothrombin Time 17.7 Seconds (9.0-12.0)
--- NOTE | 2025-05-20 09:45 | History & Physical Bridge Note ---
Date of Service May 20, 2025 History & Physical Bridge Note I have examined the patient, reviewed the History & Physical and in the interval since the performance of the History & Physical I have noted the following changes of clinical significance: no changes noted Bowel prep completed. She notes some rectal bleeding during prep but notes it has now resolved. H/H 7.9/23.7 today. Stools are watery/liquid at this point. Keep NPO & proceed with EGD & colonoscopy today. Supervising Physician Co-Signing Physician Notes I saw and examined this patient with our nurse practitioner and agree with her assessment and plan.
--- NOTE | 2025-05-20 11:27 | Hospitalist Progress Note ---
Date of Service May 20, 2025 Assessment & Plan (1) GI (gastrointestinal hemorrhage): (2) Ecchymosis: (3) Supratherapeutic INR: (4) Warfarin anticoagulation: (5) Atrial fibrillation: Plan 85 year old woman with pmhx of chronic atrial fibrillation, CKD stage 3b, osteoporosis, Alzheimers disease, hx of left breast cancer, GERD, hx of DVT, HTN who presents for weakness, fatigue, blood per rectum, bruising on head 2/2 possible upper and lower GI tract hemorrhage in setting of supratherapeutic INR. #Acute Blood Loss Anemia #Gastrointestinal Bleed #Chronic Diarrhea #Hx of C. diff #Supratherapeutic INR Per Admitting Provider, rectal exam with bright red blood and occult blood positive as well Has hx of recent c. diff infections refractory to treatment Per Admitting Provider, she has had recent dosing adjustments and memory issues so may have taken more warfarin than needed Labs on admission was notable for INR >9.5, Hb 10.4 S/P Kcentra and vitamin K on admission and INR came down to 1.1 Hb trended down from 10.4 on admission Hb is 7.9 this AM GI eval noted Continue to monitor Hb. Transfuse prn for Hb <7. C diff gene positive but negative toxin Warfarin has been on hold since admission INR increased to 1.7 today. Recheck was also 1.7. Vit K ordered Plan for endoscopies (upper and lower) today #UTI UA suggestive of UTI UCx growing E coli Patient is poor historian due to cognitive impairment Continue IV ceftriaxone #Vaginal prolapse Uro eval noted Patient has known vaginal prolapse and follows with Urogyn Dr Romaine Beyer outpatient #Chronic diarrhea History of c diff Continue probiotics #CKD Stage 3b Stable #Alzheimers Continue donepezil #Osteoporosis F/u outpatient #GERD On protonix #Hx of DVT #Chronic Atrial Fibrillation Anticoagulation on hold as above I spent a total of 40 minutes coordinating, documenting and providing care for this patient excluding time spent in performance of separately billed services Admission and Anticipated Discharge Date Admission Date: May 16, 2025 Subjective Patient seen and examined Reports only weakness Had bowel prep yesterday and overnight for colonoscopy today Physical Exam Constitutional: + well hydrated; no acute distress Eyes: PERRL, conjunctivae normal, anicteric sclerae ENMT: external ear and nose normal, oropharynx normal Respiratory: normal respiratory effort, lungs clear to auscultation Cardiovascular: Rate/Rhythm: regular rate and regular rhythm Gastrointestinal (Abdomen): Inspection/Auscultation: abdomen normal to inspection and normal bowel sounds; abdomen not distended No abdominal tenderness Neurologic: PERRL, EOMI, accommodation nl, no face palsy, no dysarthria Psychiatric: Alert and oriented to person, place, month and year Results & Data Results & Data Vital Signs (Past 12 Hours) Vital Signs Temp Pulse Pulse Resp BP Pulse Ox O2 Del Method 05/20/25 09:57 51 L 05/20/25 08:25 36.7 C 54 L 18 121/71 96 Room Air 05/20/25 03:27 36.6 C 69 18 155/73 H 95 Room Air Laboratory Results Abnormal lab results 05/19/25 05/20/25 05/20/25 Range/Units 18:28 00:29 05:27 WBC 4.70 L (4.8-10.8) K/ul RBC 2.42 L (4.20-5.40) M/uL Hgb 8.9 L 8.5 L 7.9 L (12.0-16.0) g/dL Hct 27.1 L 24.9 L 23.7 L (37.0-47.0) % Plt Count 118 L (130-400) K/uL PT 17.0 H (9.0-12.0) Seconds INR 1.7 H (0.9-1.1) Potassium 3.2 L (3.5-5.1) mmol/L Chloride 114 H (98-107) mmol/L BUN/Creatinine Ratio 7.7 L (10-20) Glucose 100 H (70-99(Fasting)) mg/dl Calcium 7.8 L (8.6-10.3) mg/dl Magnesium 1.4 L (1.7-2.4) mg/dl 05/20/25 Range/Units 08:15 WBC (4.8-10.8) K/ul RBC (4.20-5.40) M/uL Hgb (12.0-16.0) g/dL Hct (37.0-47.0) % Plt Count (130-400) K/uL PT 17.7 H (9.0-12.0) Seconds INR 1.7 H (0.9-1.1) Potassium (3.5-5.1) mmol/L Chloride (98-107) mmol/L BUN/Creatinine Ratio (10-20) Glucose (70-99(Fasting)) mg/dl Calcium (8.6-10.3) mg/dl Magnesium (1.7-2.4) mg/dl (1) GI (gastrointestinal hemorrhage) GI bleed type/associated pathology: unspecified gastrointestinal hemorrhage type Qualified Code(s): K92.2 - Gastrointestinal hemorrhage, unspecified
[2025-05-20] MEDS: PHYTONADIONE 10 MG in DEXTROSE 5% 50 ML IV ONE (11:33)
[2025-05-20] MEDS: SODIUM CHLORIDE 0.9% 500 ML IV SCH (14:25)
[2025-05-20] MEDS ORDERED: ATROPINE SULFATE 0.1 MG/ML 10ML SYR IV PRN (14:31)
--- NOTE | 2025-05-20 15:18 | GI REPORT ---
[facility] Patient: MARCY HERNANDEZ : 1940 Sex at : Female Age: 85 Years Procedure: Colonoscopy Date: 05/20/2025 Attending Physician: Brendan Escalante MD Referring MD: Referred Self; Yasmin Ahn MD Indications: - Evaluation of unexplained GI bleeding presenting with Hematochezia - Chronic diarrhea Medications: - Monitored Anesthesia Care Complications: - No immediate complications. Procedure: - Prior to the procedure, a History and Physical was performed, and patient medications and allergies were reviewed. The patient's tolerance of previous anesthesia was also reviewed. The risks and benefits of the procedure and the sedation options and risks were discussed with the patient. All questions were answered, and informed consent was obtained. [Anticoagulant Agents] [Days Prior to Procedure]. [ASA Grade]. After reviewing the risks and benefits, the patient was deemed in satisfactory condition to undergo the procedure. - The adult colonoscope was introduced through the anus and advanced to the cecum, identified by appendiceal orifice and ileocecal valve. - The colonoscopy was performed without difficulty. - The patient tolerated the procedure well. - The quality of the bowel preparation was fair. - [Anatomical Structures] photographed. Findings: - Multiple [Opening] diverticula were found in the sigmoid colon and descending colon. - The exam was otherwise without abnormality. - Biopsies for histology were taken with a cold forceps for evaluation of microscopic colitis. Impression: - Preparation of the colon was fair. - Diverticulosis in the sigmoid colon and in the descending colon. - The examination was otherwise normal. - Biopsies were taken with a cold forceps for evaluation of microscopic colitis. Recommendation: - Resume previous diet. - Patient has a contact number available for emergencies. The signs and symptoms of potential delayed complications were discussed with the patient. Return to normal activities tomorrow. Written discharge instructions were provided to the patient. Procedure Code(s): - 26724, Colonoscopy, flexible; with biopsy, single or multiple Diagnosis Code(s): - K92.1, Melena (includes Hematochezia) - K52.9, Noninfective gastroenteritis and colitis, unspecified - K57.30, Diverticulosis of large intestine without perforation or abscess without bleeding CPT(R) - 202 copyright [employer] [place] [employer]. All Rights Reserved. The CPT codes, CCI edits and ICD codes generated are intended as suggestions and were generated based on input data. These codes are preliminary and upon interactive producer review may be revised to meet current compliance and payer requirements. The provider is responsible for the final determination of appropriate codes, and modifiers. Brendan Escalante MD This document has been electronically signed. Note Initiated:05/20/2025 Note Completed:05/20/2025 3:18 PM \\[email or web address]\Provation\Results\LIVE\[id number].pdf
--- NOTE | 2025-05-20 15:19 | GI REPORT ---
[facility] Patient: MARCY HERNANDEZ : 1940 Sex at : Female Age: 85 Years Procedure: Upper GI endoscopy Date: 05/20/2025 Attending Physician: Brendan Escalante MD Referring MD: Referred Self; Yasmin Ahn MD Indications: - Suspected upper gastrointestinal bleeding Medications: - Monitored Anesthesia Care Complications: - No immediate complications. Procedure: - Prior to the procedure, a History and Physical was performed, and patient medications and allergies were reviewed. The patient's tolerance of previous anesthesia was also reviewed. The risks and benefits of the procedure and the sedation options and risks were discussed with the patient. All questions were answered, and informed consent was obtained. [Anticoagulant Agents] [Days Prior to Procedure]. [ASA Grade]. After reviewing the risks and benefits, the patient was deemed in satisfactory condition to undergo the procedure. - The egd scope was introduced through the mouth and advanced to the second part of the duodenum. - The upper GI endoscopy was accomplished without difficulty. - The patient tolerated the procedure well. Findings: - The examined esophagus was normal. - The entire examined stomach was normal. - The examined duodenum was normal. Impression: - Normal esophagus. - Normal stomach. - Normal examined duodenum. - No specimens collected. Recommendation: - Resume previous diet. - Patient has a contact number available for emergencies. The signs and symptoms of potential delayed complications were discussed with the patient. Return to normal activities tomorrow. Written discharge instructions were provided to the patient. Procedure Code(s): - 04770, Esophagogastroduodenoscopy, flexible, transoral; diagnostic, including collection of specimen(s) by brushing or washing, when performed (separate procedure) CPT(R) - 2025 copyright [employer]. All Rights Reserved. The CPT codes, CCI edits and ICD codes generated are intended as suggestions and were generated based on input data. These codes are preliminary and upon icd 9 coder review may be revised to meet current compliance and payer requirements. The provider is responsible for the final determination of appropriate codes, and modifiers. Brendan Escalante MD This document has been electronically signed. Note Initiated:05/20/2025 Note Completed:05/20/2025 3:19 PM \\[email or web address]\[email or web address]\Data\Provation\Results\LIVE\[id number]
--- NOTE | 2025-05-20 15:40 | Anesthesiology Progress Note ---
Date of Service May 20, 2025 Anesthesia Post Procedure Vital Signs Vital Signs: Temp Pulse Pulse Pulse Resp BP Pulse Ox 05/20/25 15:35 65 17 138/60 98 05/20/25 15:19 37.1 C 68 60 17 119/50 L 98 05/20/25 15:07 65 05/20/25 14:17 37.1 C 58 L 16 148/92 H 100 05/20/25 12:13 36.9 C 58 L 17 163/71 H 99 05/20/25 09:57 51 L 05/20/25 08:25 36.7 C 54 L 18 121/71 96 05/20/25 03:27 36.6 C 69 18 155/73 H 95 05/19/25 22:56 37.3 C 54 L 17 148/65 H 96 05/19/25 22:30 50 L 05/19/25 19:31 37.5 C 55 L 20 152/75 H 94 05/19/25 17:26 36.3 C L 58 L 18 146/80 H 98 O2 Del Method 05/20/25 15:35 Room Air 05/20/25 15:19 Room Air 05/20/25 15:07 05/20/25 14:17 Room Air 05/20/25 12:13 Room Air 05/20/25 09:57 05/20/25 08:25 Room Air 05/20/25 03:27 Room Air 05/19/25 22:56 Room Air 05/19/25 22:30 05/19/25 19:31 Room Air 05/19/25 17:26 Room Air Transfer of Care Handoff Completed per policy Notes Mental Status: alert / awake / arousable Patient Amnestic to Procedure: Yes Nausea / Vomiting: adequately controlled Pain: adequately controlled Airway Patency, RR, SpO2: stable & adequate BP & HR: stable & adequate Hydration State: stable & adequate Anesthetic Complications: no major complications apparent
[2025-05-20] MEDS: PROPOFOL IV EMULSION 10 MG/ML 20 ML VIAL IV ONE (18:30)
[2025-05-20] MEDS: LIDOCAINE 2% 2 ML VIAL/AMP(20MG/ML) INFIL ONE (18:30)
[2025-05-21 06:21] LABS: Hematocrit (blood only) 25.2 % (37.0-47.0); Hemoglobin 8.6 g/dL (12.0-16.0); Mean Corpuscular Hemoglobin 32.8 pg (25.0-34.0); Mean Corpuscular Volume 96.2 fL (80.0-100.0); Platelet Count 129 K/uL (130-400); RDW Standard Deviation 45.4 fL (36.4-46.3); Red Blood Count 2.62 M/uL (4.20-5.40); White Blood Count 6.61 K/ul (4.8-10.8)
[2025-05-21 06:40] LABS: Anion Gap 6.0 (3-11); Blood Urea Nitrogen 6.0 mg/dl (6-23); Calcium 8.2 mg/dl (8.6-10.3); Carbon Dioxide 21.0 mmol/L (21-32); Chloride 114.0 mmol/L (98-107); Creatinine Clr Calc Pharmacy 30.2 ml/min; Glucose 93.0 mg/dl (70-99(Fasting)); Magnesium 1.7 mg/dl (1.7-2.4); Potassium 3.7 mmol/L (3.5-5.1); Sodium 141.0 mmol/L (136-145)
[2025-05-21 06:52] LABS: INR 1.2 (0.9-1.1); Prothrombin Time 12.7 Seconds (9.0-12.0)
--- NOTE | 2025-05-21 13:14 | Hospitalist Progress Note ---
Date of Service May 21, 2025 Assessment & Plan (1) GI (gastrointestinal hemorrhage): (2) Ecchymosis: (3) Supratherapeutic INR: (4) Warfarin anticoagulation: (5) Atrial fibrillation: Plan 85 year old woman with pmhx of chronic atrial fibrillation, CKD stage 3b, osteoporosis, Alzheimers disease, hx of left breast cancer, GERD, hx of DVT, HTN who presents for weakness, fatigue, blood per rectum, bruising on head 2/2 possible upper and lower GI tract hemorrhage in setting of supratherapeutic INR. #Acute Blood Loss Anemia #Gastrointestinal Bleed #Chronic Diarrhea #Hx of C. diff #Supratherapeutic INR Per Admitting Provider, rectal exam with bright red blood and occult blood positive as well Has hx of recent c. diff infections refractory to treatment Per Admitting Provider, she has had recent dosing adjustments and memory issues so may have taken more warfarin than needed Labs on admission was notable for INR >9.5, Hb 10.4 S/P Kcentra and vitamin K on admission and INR came down to 1.1 Hb trended down from 10.4 on admission . C diff gene positive but negative toxin Warfarin has been on hold since admission S/p EGD and Colonoscopy on 05/20/25 EGD was unremarkable C-scope noted diverticular in sigmoid and descending colon. No other abnormalities. Biopsies were taken Pathology did not show any abnormalities #UTI UA suggestive of UTI UCx growing E coli Patient is poor historian due to cognitive impairment Currently on IV ceftriaxone to complete treatment #Vaginal prolapse Uro eval noted Patient has known vaginal prolapse and follows with Urogyn Dr Romaine Beyer outpatient #Chronic diarrhea History of c diff Continue probiotics #CKD Stage 3b Stable #Alzheimers Continue donepezil #Osteoporosis F/u outpatient #GERD On protonix #Hx of DVT #Chronic Atrial Fibrillation Anticoagulation on hold as above Called daughter and updated her. Went over findings. We discussed her anticoagulation. Risks and benefits. She and her sister will like to continue it. They will want to hold off dc till tomorrow Daughter will take over medication administration/clinics/warfarin clinic Awaiting PT/OT eval I spent a total of 50 minutes coordinating, documenting and providing care for this patient excluding time spent in performance of separately billed services Admission and Anticipated Discharge Date Admission Date: May 16, 2025 Subjective Patient seen and examined Reports only weakness No BM since endoscopies Physical Exam Constitutional: + well hydrated; no acute distress Eyes: PERRL, conjunctivae normal, anicteric sclerae ENMT: external ear and nose normal, oropharynx normal Respiratory: normal respiratory effort, lungs clear to auscultation Cardiovascular: Rate/Rhythm: regular rate and regular rhythm Gastrointestinal (Abdomen): normal bowel sounds, soft, nontender, no hepatosplenomegaly Inspection/Auscultation: abdomen normal to inspection and normal bowel sounds; abdomen not distended Neurologic: PERRL, EOMI, accommodation nl, no face palsy, no dysarthria Results & Data Results & Data Vital Signs (Past 12 Hours) Vital Signs Temp Pulse Pulse Resp BP Pulse Ox O2 Del Method 05/21/25 12:42 36.6 C 58 L 18 155/69 H 95 Room Air 05/21/25 07:50 36.5 C 59 L 17 143/65 H 96 Room Air 05/21/25 07:43 67 05/21/25 03:41 36.6 C 56 L 16 140/74 96 Room Air Laboratory Results Abnormal lab results 05/21/25 Range/Units 05:36 RBC 2.62 L (4.20-5.40) M/uL Hgb 8.6 L (12.0-16.0) g/dL Hct 25.2 L (37.0-47.0) % Plt Count 129 L (130-400) K/uL PT 12.7 H (9.0-12.0) Seconds INR 1.2 H (0.9-1.1) Chloride 114 H (98-107) mmol/L BUN/Creatinine Ratio 5.9 L (10-20) Calcium 8.2 L (8.6-10.3) mg/dl (1) GI (gastrointestinal hemorrhage) GI bleed type/associated pathology: unspecified gastrointestinal hemorrhage type Qualified Code(s): K92.2 - Gastrointestinal hemorrhage, unspecified
[2025-05-22 06:03] LABS: Hematocrit (blood only) 24.1 % (37.0-47.0); Hemoglobin 8.2 g/dL (12.0-16.0); Mean Corpuscular Hemoglobin 33.3 pg (25.0-34.0); Mean Corpuscular Volume 98.0 fL (80.0-100.0); Platelet Count 128 K/uL (130-400); RDW Standard Deviation 48.6 fL (36.4-46.3); Red Blood Count 2.46 M/uL (4.20-5.40); White Blood Count 5.56 K/ul (4.8-10.8)
[2025-05-22 06:38] LABS: Anion Gap 7.0 (3-11); Blood Urea Nitrogen 9.0 mg/dl (6-23); Calcium 8.1 mg/dl (8.6-10.3); Carbon Dioxide 23.0 mmol/L (21-32); Chloride 111.0 mmol/L (98-107); Creatinine Clr Calc Pharmacy 28.7 ml/min; Glucose 79.0 mg/dl (70-99(Fasting)); Potassium 3.7 mmol/L (3.5-5.1); Sodium 141.0 mmol/L (136-145)
[2025-05-22 06:40] LABS: INR 1.2 (0.9-1.1); Prothrombin Time 12.4 Seconds (9.0-12.0)
[2025-05-22 07:40] VITALS: RESP 18; TEMP 97.5
[2025-05-22 09:09] LABS: Iron 62.0 mcg/dl (35-150)
--- NOTE | 2025-05-22 10:53 | Discharge Summary ---
Discharge Summary Date of Service May 22, 2025 Principal Dx & Hospital Course #1 = Principal Diagnosis (1) GI (gastrointestinal hemorrhage): (2) Ecchymosis: (3) Supratherapeutic INR: (4) Warfarin anticoagulation: (5) Atrial fibrillation: Plan per previous hospitalist notes with addendum: 85 year old woman with pmhx of chronic atrial fibrillation, CKD stage 3b, osteoporosis, Alzheimers disease, hx of left breast cancer, GERD, hx of DVT, HTN who presents for weakness, fatigue, blood per rectum, bruising on head 2/2 possible upper and lower GI tract hemorrhage in setting of supratherapeutic INR. #Acute Blood Loss Anemia #Gastrointestinal Bleed #Chronic Diarrhea #Hx of C. diff #Supratherapeutic INR Per Admitting Provider, rectal exam with bright red blood and occult blood positive as well Has hx of recent c. diff infections refractory to treatment Per Admitting Provider, she has had recent dosing adjustments and memory issues so may have taken more warfarin than needed Labs on admission was notable for INR >9.5, Hb 10.4 S/P Kcentra and vitamin K on admission and INR came down to 1.1 Hb trended down from 10.4 on admission . C diff gene positive but negative toxin Warfarin has been on hold since admission S/p EGD and Colonoscopy on 05/20/25 EGD was unremarkable C-scope noted diverticular in sigmoid and descending colon. No other abnormalities. Biopsies were taken Pathology did not show any abnormalities 05/22 no recurrence of GI bleed patient feels fine overall Hg remained stable ~8 coumadin decreased to 1mg/day, repeat INR on Tue, ff up with [facility] Tuesday monitor INR closely as outpatient #UTI UA suggestive of UTI UCx growing E coli Patient is poor historian due to cognitive impairment completed 5 day course of IV Ceftriaxone #Vaginal prolapse Uro eval noted Patient has known vaginal prolapse and follows with Urogyn Dr Romaine Beyer outpatient #Chronic diarrhea History of c diff Continue probiotics #CKD Stage 3b Stable #Alzheimers Continue donepezil #Osteoporosis F/u outpatient #GERD On protonix #Hx of DVT #Chronic Atrial Fibrillation Anticoagulation on hold as above Disposition d/c home PCP in 1 week Notes For Next Care Provider Medication Changes From Visit coumadin decreased to 1mg daily Admission HPI Per Admitting Provider 85 yo female with pmhx of chronic atrial fibrillation, CKD stage 3b, osteoporosis, Alzheimers disease, hx of left breast cancer, GERD, hx of DVT, HTN who presents for weakness, fatigue, blood per rectum, bruising on head. No admissions at [facility]. In the ED, given vitamin K for very high INR, tried to admit to medicine, medicine requested kcentra given 4 point Hgb drop and active hemorrhage, Kcentra ordered by ED, admitted to medicine for further workup. Patient seen and examined at bedside. Daughter and sister present as well. Patient is a poor historian. Yesterday was noted to have a bruise all over her head, denies true following, denies being hit. Per family has been having bright red blood per rectum for the past few days. Has had black stool for the past few weeks. Has significant issues with diarrhea. This morning felt weak, lightheaded, fatigued and came to the ED. Denies nausea vomiting chest pain or other associated symptoms. No alcohol use, no tobacco use, no drug use, DNR DNI discussed with family Admission Exam Per Admitting Provider Gen: A&O 3 NAD HEENT: noted ecchymoses on scalp worst on left side Neck: Supple, full range of motion, no observable masses, No meningeal sign. Lungs: No Respiratory distress. CV: irregurally irregular, no edema. Abdomen: rectal exam performed with POA permission and with geriatric case manager in room, trace bright red blood noted, tenderness to palpation in suprapubic region and RLQ MSK: scattered ecchymoses Skin: No rashes, petechiae, lesions. Normal color per patient. Neuro: Normal Gait, Grossly intact. Psych: Appropriate for situation. Discharge Exam General- oriented x 2-3, not in distress, speaks in sentences with no effort or accessory muscle use Eyes- anicteric Neck- no JVD Lungs- clear breath sounds bilaterally, no rales/wheezes Heart- normal rate, regular rhythm; no murmurs Abdomen- normal bowel sounds, nondistended, soft, nontender Extremities- no pretibial edema, no calf tenderness Neuro- alert, oriented x 2-3; no gross focal neurologic deficits Skin- warm & dry Updated Medication List Medication Instructions Recorded Confirmed Type acetaminophen 500 mg tablet 500 mg PO Q4H PRN Pain 05/16/25 05/16/25 History (Tylenol Extra Strength) calcium carbonate 500 mg PO BID 05/16/25 05/16/25 History cholecalciferol (vitamin D3) 50 50 mcg PO BID 05/16/25 05/16/25 History mcg (2,000 unit) capsule (Vitamin D3) colestipol 1 gram tablet 1 g PO BID 05/16/25 05/16/25 History diltiazem HCl 120 mg 120 mg PO QAM 05/16/25 05/16/25 History capsule,extended release 24 hr donepezil 10 mg tablet 10 mg PO QAM 05/16/25 05/16/25 History dorzolamide 22.3 mg-timolol 6.8 1 drp OPB QAM 05/16/25 05/16/25 History mg/mL eye drops estradiol 0.01% (0.1 mg/gram) 0.5 g vaginal DIRECTED 05/16/25 05/16/25 History vaginal cream iron 18 mg tablet 18 mg PO DAILY 05/16/25 05/16/25 History metoprolol tartrate 50 mg tablet 75 mg PO BID 05/16/25 05/16/25 History jpzlfiqs-tsfd-sldv 8 mg-folic 400 1 tab PO DAILY 05/16/25 05/16/25 History mcg-K 50 mcg-lutein 300 mcg tablet (Multivitamin Women 50 Plus) silver sulfadiazine 1 % topical 1 applic topical TID 05/16/25 05/16/25 History cream L.acidop,casei,lactis,rham-B.lact,bhavesh 1 cap PO DAILY 7 days #7 caps 05/22/25 Rx 625 mg (10 billion cell) capsule (Advanced Probiotic) warfarin 2 mg tablet 1 mg (1/2 x 2 mg) PO DAILY #0 tabs 05/22/25 05/16/25 Rx Hospital Stay Data Consultations 05/16/25 16:07 ED Decision to Admit Stat 05/16/25 16:34 Consult Gastroenterology Routine 05/19/25 08:00 Consult Urology Routine Procedures Performed Operation Date: 05/20/25 16:45 Actual Procedures s Esophagogastroduodenoscopy(Not Applicable) - Brendan Escalante MD p Colonoscopy Biopsy Cytology(Not Applicable) - Brendan Escalante MD Diagnostic Imagining Performed Laboratory Results WBC 5.56 K/ul (4.8-10.8) 05/22/25 05:36 RBC 2.46 M/uL (4.20-5.40) L 05/22/25 05:36 Hgb 8.2 g/dL (12.0-16.0) L 05/22/25 05:36 Hct 24.1 % (37.0-47.0) L 05/22/25 05:36 MCV 98.0 fL (80.0-100.0) 05/22/25 05:36 MCH 33.3 pg (25.0-34.0) 05/22/25 05:36 MCHC 34.0 g/dL (32.0-36.0) 05/22/25 05:36 RDW Std Deviation 48.6 fL (36.4-46.3) H 05/22/25 05:36 RDW Coeff of Janee 13.8 % (11.5-14.5) 05/22/25 05:36 Plt Count 128 K/uL (130-400) L 05/22/25 05:36 MPV 10.3 fL (9.4-12.4) 05/22/25 05:36 Immature Gran % (Auto) 0.4 % 05/16/25 12:01 Neut % (Auto) 81.3 % 05/16/25 12:01 Lymph % (Auto) 10.6 % 05/16/25 12:01 [place] % (Auto) 7.1 % 05/16/25 12:01 Eos % (Auto) 0.2 % 05/16/25 12:01 Baso % (Auto) 0.4 % 05/16/25 12:01 Neut # (Auto) 9.10 K/uL (1.40-6.50) H 05/16/25 12:01 Lymph # (Auto) 1.19 K/uL (1.20-3.40) L 05/16/25 12:01 [place] # (Auto) 0.80 K/uL (0.11-0.59) H 05/16/25 12:01 Eos # (Auto) 0.02 K/uL (0.00-0.50) 05/16/25 12:01 Baso # (Auto) 0.04 K/uL (0.00-0.20) 05/16/25 12:01 Immature Gran # (Auto) 0.05 K/uL (0.01-0.20) 05/16/25 12:01 PT 12.4 Seconds (9.0-12.0) H 05/22/25 05:36 INR 1.2 (0.9-1.1) H 05/22/25 05:36 APTT 86 Seconds (21-31) H* 05/16/25 12:01 PTT Ratio 3.2 05/16/25 12:01 Sodium 141 mmol/L (136-145) 05/22/25 05:36 Potassium 3.7 mmol/L (3.5-5.1) 05/22/25 05:36 Chloride 111 mmol/L (98-107) H 05/22/25 05:36 Carbon Dioxide 23 mmol/L (21-32) 05/22/25 05:36 Anion Gap 7 (3-11) 05/22/25 05:36 BUN 9 mg/dl (6-23) 05/22/25 05:36 Creatinine 1.06 mg/dl (0.6-1.2) 05/22/25 05:36 Est Cr Clr Drug Dosing 28.7 ml/min 05/22/25 05:36 eGFR 51.16 05/22/25 05:36 BUN/Creatinine Ratio 8.5 (10-20) L 05/22/25 05:36 Glucose 79 mg/dl (70-99(Fasting)) 05/22/25 05:36 Lactate 1.6 mmol/L (0.4-2.0) 05/16/25 14:08 Calcium 8.1 mg/dl (8.6-10.3) L 05/22/25 05:36 Phosphorus 2.8 mg/dl (2.5-4.9) 05/21/25 05:36 Magnesium 1.7 mg/dl (1.7-2.4) 05/21/25 05:36 Iron 62 mcg/dl (35-150) 05/22/25 05:36 Total Bilirubin 0.7 mg/dl (0.2-1.0) 05/19/25 06:42 AST 17 U/L (13-39) 05/19/25 06:42 ALT 5 U/L (7-52) L 05/19/25 06:42 Alkaline Phosphatase 35 U/L (34-104) 05/19/25 06:42 Total Creatine Kinase 78 U/L (26-192) 05/16/25 12:01 Troponin I High Sens 3.2 pg/ml (0-14) 05/16/25 12:01 Total Protein 5.7 gm/dl (6.0-8.3) L 05/19/25 06:42 Albumin 3.0 gm/dl (3.4-5.0) L 05/19/25 06:42 Globulin 2.7 gm/dl (2.5-4.0) 05/19/25 06:42 Albumin/Globulin Ratio 1.1 (0.9-2) 05/19/25 06:42 Folate 15.76 ng/ml (>5.38) 05/22/25 05:36 TSH 2.052 uIu/ml (0.300-4.500) 05/16/25 12:01 Urine Color Yellow 05/17/25 Unknown Urine Appearance Cloudy (Clear) A 05/17/25 Unknown Urine pH 5.0 (4.5-7.5) 05/17/25 Unknown Ur Specific [place] 1.020 (1.000-1.030) 05/17/25 Unknown Urine Protein Negative (Negative) 05/17/25 Unknown Urine Glucose (UA) Negative (Negative) 05/17/25 Unknown Urine Ketones Trace (Negative) H 05/17/25 Unknown Urine Blood Trace (Negative) H 05/17/25 Unknown Urine Nitrite Positive (Negative) A 05/17/25 Unknown Urine Bilirubin Negative (Negative) 05/17/25 Unknown Urine Urobilinogen Negative (Negative) 05/17/25 Unknown Ur Leukocyte Esterase 2+ (Negative) H 05/17/25 Unknown Urine WBC (Auto) 21-50 /hpf (0-5) H 05/17/25 Unknown Urine RBC (Auto) 0-2 /hpf (0-2) 05/17/25 Unknown U Hyaline Cast (Auto) 3-5 /lpf (0-2) H 05/17/25 Unknown U Epithel Cells (Auto) 11-20 /hpf (0-2) H 05/17/25 Unknown Urine Bacteria (Auto) 4+ (None Seen) H 05/17/25 Unknown Urine Mucus Present (None Prsent) A 05/17/25 Unknown Urine Comment 05/17/25 Unknown POC Stool Occult Blood Positive (Negative) A 05/16/25 14:25 Stl C. cayetanensis PCR Not Detected (NotDetected) 05/18/25 Unknown Stool Rotavirus A PCR Not Detected (NotDetected) 05/18/25 Unknown Stl Adenov F 40/41 PCR Not Detected (NotDetected) 05/18/25 Unknown Stool Astrovirus (PCR) Not Detected (NotDetected) 05/18/25 Unknown Stool Campylobacter PCR Not Detected (NotDetected) 05/18/25 Unknown Stl C. diff Tox B Gene Positive Cdiff Gene (Neg) A 05/17/25 10:44 Stl C.difficile Tox A&B Negative Cdiff Toxin (Negative) 05/17/25 10:44 Stl C. diff [id number]-[id number] NEGATIVE 05/17/25 10:44 Stool Cryptosporidium PCR Not Detected (NotDetected) 05/18/25 Unknown Stl E.coli Shiga Tox PCR Not Detected (NotDetected) 05/18/25 Unknown Stool E coli O157 PCR Cancelled 05/17/25 10:44 Stl Enterotoxigenic E PCR Not Detected (NotDetected) 05/18/25 Unknown Stool EPEC (PCR) Not Detected (NotDetected) 05/18/25 Unknown Stool EAEC (PCR) Not Detected (NotDetected) 05/18/25 Unknown Stl E. histolytica PCR Not Detected (NotDetected) 05/18/25 Unknown Stool Giardia Lamblia PCR Not Detected (NotDetected) 05/18/25 Unknown Stool Salmonella PCR Not Detected (NotDetected) 05/18/25 Unknown Stool Sapovirus (PCR) Not Detected (NotDetected) 05/18/25 Unknown Stl P. shigelloides PCR Not Detected (NotDetected) 05/18/25 Unknown Stl Shigella/EIEC PCR Not Detected (NotDetected) 05/18/[address].enterocolitica PCR Not Detected (NotDetected) 05/18/25 Unknown Stool Vibrio (PCR) Not Detected (NotDetected) 05/18/25 Unknown Stl Vibrio cholerae PCR Not Detected (NotDetected) 05/18/25 Unknown Stl Norovirus GI/GII PCR Not Detected (NotDetected) 05/18/25 Unknown Adenovirus (PCR) Not Detected (NotDetected) 05/16/25 Unknown B. pertussis DNA (PCR) Not Detected (NotDetected) 05/16/25 Unknown B.parapertussis DNA PCR Not Detected (NotDetected) 05/16/25 Unknown C. pneumoniae DNA (PCR) Not Detected (NotDetected) 05/16/25 Unknown Coronavirus OC43 (PCR) Not Detected (NotDetected) 05/16/25 Unknown Coronavirus HKU1 (PCR) Not Detected (NotDetected) 05/16/25 Unknown Coronavirus 229E (PCR) Not Detected (NotDetected) 05/16/25 Unknown SARS-CoV-2 (PCR) Not Detected (NotDetected) 05/16/25 Unknown Coronavirus NL63 (PCR) Not Detected (NotDetected) 05/16/25 Unknown Human Metapneumovir PCR Not Detected (NotDetected) 05/16/25 Unknown Influenza Type A (PCR) Not Detected (NotDetected) 05/16/25 Unknown Influenza Type B (PCR) Not Detected (NotDetected) 05/16/25 Unknown M. pneumoniae (PCR) Not Detected (NotDetected) 05/16/25 Unknown Parainfluenza 1 (PCR) Not Detected (NotDetected) 05/16/25 Unknown Parainfluenza 2 (PCR) Not Detected (NotDetected) 05/16/25 Unknown Parainfluenza 3 (PCR) Not Detected (NotDetected) 05/16/25 Unknown Parainfluenza 4 (PCR) Not Detected (NotDetected) 05/16/25 Unknown RSV (PCR) Not Detected (NotDetected) 05/16/25 Unknown Entero/Rhino (PCR) Not Detected (NotDetected) 05/16/25 Unknown Impressions Chest/Abdomen X-ray 05/16/25 12:28 XR abdomen 2V w PA chest HISTORY: 85 years-old Female Weakness, h/o A-fib, GI bleed CT chest abdominal pain with weakness COMPARISON: Chest radiograph 09/05/2023 TECHNIQUE: AP view of the chest with left lateral acute and supine views of the abdomen FINDINGS: Cardiomediastinal and hilar silhouettes are within normal limits. Skin folds project over the chest. No definite pneumothorax, pleural effusion or airspace consolidation. Degenerative changes of the shoulders and spine with sigmoidal thoracolumbar scoliosis. Nonobstructive bowel gas pattern. No definite pneumatosis or pneumoperitoneum. No definite urolith is seen. IMPRESSION: 1. No acute process of the chest. 2. Nonobstructive bowel gas pattern. ACT 112: Negative or not required by law. The above report was generated using voice recognition software. It may contain grammatical, syntax or spelling errors. Electronically signed by: Nino Urias M.D. 05/16/2025 3:[address] 05/16/25 13:30 CT SCAN OF THE BRAIN WITHOUT IV CONTRAST CLINICAL HISTORY: Weakness. Elevated INR. COMPARISON STUDY: None. TECHNIQUE: Unenhanced axial CT scan of the brain was performed from the vertex to the skull base. A dose lowering technique was utilized adhering to the principles of ALARA. CT DOSE: 703.85 mGy.cm FINDINGS: Brain parenchyma: No acute intracranial hemorrhage, midline shift or mass effect is present. [place]-white matter differentiation is preserved. There are no extra- axial fluid collections. There are no findings to suggest acute dural sinus thrombosis or acute territorial infarct. Ventricles, sulci, cisterns: There is no hydrocephalus. The basal cisterns are patent. Calvarium: Unremarkable. Sinuses and mastoids: The visualized paranasal sinuses are clear. The mastoid air cells are well pneumatized. Orbits: The bony orbits are grossly intact. IMPRESSION: No acute intracranial findings. ACT 112: Negative or not required by law. Electronically signed by: Van Lynn M.D. 05/16/2025 3:34 PM Pending Results Patient Have Any Pending Studies at Discharge: Yes Discharge Instructions Given to Patient (Per Discharging Provider) PLEASE REFER TO YOUR NEW MEDICATION LIST AND FOLLOW INSTRUCTIONS CAREFULLY. YOUR NEW MEDICATIONS INCLUDE: Warfarin/Coumadin: 1 mg once a day : repeat INR check on TuesdayMay 24, further advice to be given by [facility] Pharmacist PLEASE CALL YOUR PRIMARY CARE PHYSICIAN OR RETURN TO THE ER IF WITH WORSENING OF SYMPTOMS, INCLUDING bloody or black stools, abdominal pain, nausea/vomiting, weakness, dizziness, shortness of breath, etc FOLLOW UP WITH PRIMARY CARE PHYSICIAN OUTLINED ABOVE. Total Time Total Time Spent Total Time Spent (In Minutes): 50 minutes
[2025-05-22 13:42] VITALS: BP 128/60; PULSE 62; O2SAT 93
--- NOTE | 2025-05-24 08:45 | Coding Query ---
CODING QUERY To promote full compliance with coding requirements relating to patient care, provider participation is requested in all cases of surgical coder uncertainty. Please assist us with the question(s) below: Coding Question(s): There is documentation on H&P, Progress Notes and Discharge Summary, "Per Admitting Provider, she has had recent dosing adjustments and memory issues so may have taken more warfarin than needed", and documentation of GI Hemorrhage through the record and Supratherapeutic INR, with documentation on the 05/17 Gastrointestinal Consultation of, "Patient admitted with supratherapeutic INR. Bleeding seems to have stopped and was likely related to her high INR". Please specify below, in your clinical opinion: ( x ) GI Bleeding/hemorrhage most likely caused by Warfarin with the patient possibly taking too much/more that prescribed ( ) GI Bleeding/hemorrhage Not caused by Warfarin ( ) Other: Please Specify Physician's Response(s): Thank you Darlene Williamson Principal Diagnosis: "that condition established after study, to be chiefly responsible for occasioning the admission of the patient to the hospital for care." Co-Existing Principal Diagnosis: "when two or more diagnoses equally meet the criteria for principal diagnosis as determined by the circumstances of admission, diagnostic work up, and/or therapy provided, and the Alphabetic Index, Tabular List, or another coding guideline does not provide sequencing direction, any one of the diagnoses may be sequenced first." "When the physician has documented what appears to be a current diagnosis in the body of the record, but has not included the diagnosis in the final diagnostic statement, the physician should be asked whether the diagnosis should be added." (Source Coding [facility] 2 QTR90. p3-4) MICHELED
== END 2025-05-22 14:04 | disposition home or self-care (01) | DRG 917 ==
LOC: ED 11:57 → 4W 16:09 → SUATTDRO 16:09 → 4W 18:13